=== PATIENT | female | born 1940 | race Caucasian/White ===

== ENCOUNTER 2020-07-27 09:39 | Outpatient (CLI) | payer MEDICARE, SELFPAY ==
--- NOTE | ~2020-07-27 | DEXA_ITS ---
Bone Density Report Name: Shalini Lion Age: 80 Sex: Female Ethnicity: White Date of : 1940 Indication: postmenopausal; height loss; Referring Provider: AZUCNEA PERDOMO Study: Bone densitometry was performed. Exam Date: July 27, 2020 Accession number: [id number] Bone Density: Region BMD T-score Z-score Classification AP Spine (L1-L4) 1.017 -0.3 2.4 Normal Femoral Neck (Left) 0.797 -0.5 1.9 Normal Total Hip (Left) 0.875 -0.5 1.6 Normal Total Hip Bilateral Avg 0.909 -0.3 1.8 Normal Femoral Neck (Right) 0.833 -0.1 2.2 Normal Total Hip (Right) 0.942 0.0 2.1 Normal World Health Organization criteria for BMD impression classify patients as: Normal (T-score at or above -1.0), Osteopenia (T-score between -1.0 and -2.5), or Osteoporosis (T-score at or below -2.5). 10-year Fracture Risk: FRAX not reported because: All T-scores for Spine Total, Hip Total, Femoral Neck at or above -1.0 Clinical Information Provided by Patient: Has used the following medications: Calcium Patient maximum height was 64 Menopause Age: 49 No regular weight bearing exercise Drinks caffeinated beverages Onset of menses at age 13 Number of children 2 Impression: The patient has normal bone mass. Discussion: BONE DENSITY IS ABOVE THE MINIMUM DESIRABLE LEVEL AT ALL SKELETAL SITES TESTED. This patient?s bone mineral density is above the minimum desirable level (T-score -1.0 or better) at all sites measured. The patient should follow a healthful lifestyle (good nutrition with adequate calcium and vitamin D, and appropriate weight-bearing exercise). Follow-Up: Consider repeating this study in 5 years or sooner if there is some new clinical indication. Reported by: [facility] on 07/27/2020 10:05:00 AM. Reviewed, dictated and finalized at location AObie MASTERS
== END 2020-07-27 09:40 | disposition home or self-care (01) ==
LOC: ANHIMG 09:45
PROVIDERS: PCP Internal Medicine; Visit Provider Internal Medicine
DX: Z78.0 Asymptomatic menopausal state (principal)
CPT/HCPCS: 77080

== ENCOUNTER → 2020-07-27 10:14 | Outpatient (CLI) | payer MEDICARE, SELFPAY ==
--- NOTE | ~2020-07-27 | XR_ITS ---
EXAMINATION: XR thoracic spine 3V DATE: 07/27/2020 10:53 INDICATION: Dorsalgia. TECHNIQUE: 3 views of thoracic spine were obtained. COMPARISON: None. FINDINGS: There is 23 degrees levoscoliosis of upper thoracic spine and 23 degrees dextroscoliosis of mid thoracic spine. Vertebral body heights are normal. There is moderately decreased disc height at T7-T8 and T11-T12. There is mildly decreased disc height at many other levels. There are but osteophy ron at most levels. IMPRESSION: 1. Scoliosis. 2. Moderate thoracic spondylosis. Reviewed, dictated and finalized at location B. [facility]
== END ==
PROVIDERS: PCP Internal Medicine; Visit Provider Internal Medicine
DX: M41.9 Scoliosis, unspecified (principal); M47.894 Other spondylosis, thoracic region
CPT/HCPCS: 72072

== ENCOUNTER 2021-02-09 22:18 | Inpatient (IN) | payer MEDICARE, SELFPAY ==
--- NOTE | ~2021-02-09 | CT_ITS ---
EXAMINATION: CT BRAIN W/O DATE: 02/09/2021 23:07 INDICATION: Near syncope TECHNIQUE: Computed tomography (CT) of the head was performed without intravenous contrast. The dose- length product was 605.33 mGy-cm. COMPARISON: No prior studies for comparison. FINDINGS: Normal brain parenchymal volume for age. Normal lombardi-white differentiation. No acute intrac ranial hemorrhage, infarction, mass or mass effect. There are scattered mild periventricular and subc ortical white matter changes, most likely related to small vessel ischemic disease (microangiopathy). There is intracranial atherosclerosis. No ventriculomegaly or midline shift. Midline sagittal images demonstrate a normal corpus callosum, c raniovertebral junction and sella turcica. Basilar cisterns are patent. Paranasal sinuses and mastoids are pneumatized. No depressed skull fractures. IMPRESSION: 1. No acute intracranial abnormality. Reviewed, dictated and finalized at location A.
--- NOTE | ~2021-02-09 | XR_ITS ---
XR chest 1V portable 02/09/2021 22:40 Indication: Generalized chest pain. Nausea and vomiting. Procedure: AP portable chest Comparison: 10/01/2018 Findings: Elevated right diaphragm appears chronic. Scoliosis. Heart size normal. No focal air space disease, pulmonary edema, pleural effusion or suspected pneumothorax. Calcified granuloma right upper lung zone. No acute osseous abnormality. Impression: 1: No acute cardiopulmonary disease. Reviewed, dictated and finalized at location A. Impression: 1: No acute cardiopulmonary disease.
--- NOTE | ~2021-02-09 | CT_ITS ---
EXAMINATION: CT abdomen pelvis wo con DATE: 02/09/2021 23:07 INDICATION: Near syncope. Generalized abdominal pain. TECHNIQUE: Computed tomography (CT) of the abdomen and pelvis was performed without intravenous contr ast. The dose-length product was 445.02 mGy-cm. Automated exposure control and iterative reconstructi on technique were employed. COMPARISON: CT dated 02/14/2015. FINDINGS: There is dependent atelectasis. Heart size normal. No significant pleural or pericardial ef fusion. There is gastric distention with large amount of fluid and debris in the stomach. Mild thicke juan ramon of the duodenum, suspicious for duodenitis. The liver, spleen, pancreas, adrenal glands are unremarkable. Bilateral renal cysts, largest in the l eft kidney measuring 4.6 cm. Colonic diverticulosis without evidence for diverticulitis. No significa nt vascular abnormality. No free air or free fluid. Moderate lower thoracic and lumbar spondylosis. T here is scoliosis. There is osteoarthritis of the hips. IMPRESSION: 1. Thickening of the duodenum with prominent distention of the stomach containing fluid and debris. C onsider duodenitis with partial obstruction. Reviewed, dictated and finalized at location A. IMPRESSION: 1. Thickening of the duodenum with prominent distention of the stomach containi ng fluid and debris. Consider duodenitis with partial obstruction.
[2021-02-09 22:15] VITALS: BP 81/63; PULSE 102; RESP 15; TEMP 36.3; O2SAT 100
--- NOTE | 2021-02-09 22:47 | ED.NAVMDI ---
HPI - Nausea/Vomiting/Diarrhea General Chief complaint: Nausea/Vomiting/Diarrhea Stated complaint: n/v/d and abd pain x couple days Time Seen by Provider: 02/09/21 22:25 Source: patient Mode of arrival: EMS Limitations: no limitations History of Present Illness HPI Narrative: Patient is an 80-year-old female complaining of nausea, vomiting, and diarrhea that started yesterday. Patient states that she called EMS after she almost passed out while in the bathroom. Patient's blood pressure was in the 80s over 40s when EMS arrived at her house. Patient denies headache, dizziness, speech or visual disturbance, focal weakness or numbness, chest pain, shortness of breath, fever, chills or urinary symptoms. Related Data Home Medications Medication Instructions Recorded Confirmed aspirin 81 mg tablet,delayed 81 mg PO DAILY 09/02/19 12/30/20 release melatonin 5 mg capsule mg PO DAILY cap 12/29/20 12/29/20 Allergies Allergy/AdvReac Type Severity Reaction Status Date / Time No Known Allergies Allergy Verified 02/09/21 22:30 Review of Systems Review of Systems: All systems reviewed & are unremarkable except as noted in HPI and below Constitutional: Constitutional: Denies body ache(s), Denies chills, Denies excessive sweating, Denies fatigue, Denies fever(s), Denies headache(s), Denies lethargy, Denies malaise and Denies weight loss Eyes: Eyes: Denies blurry vision, Denies change in vision and Denies loss of vision ENT: Denies dizziness, Denies ear discharge, Denies headache(s), Denies lip swelling, Denies epistaxis, Denies nasal congestion, Denies neck pain, Denies throat swelling and Denies tongue swelling Cardiovascular: Cardiovascular: Denies chest pain, Denies chest pain at rest, Denies chest pain with activity, Denies diaphoresis, Denies rapid heart rate, Denies edema, Denies irregular heart rhythm, Denies lightheadedness, Denies palpitations, Denies dyspnea and Denies dyspnea on exertion Respiratory: Respiratory: Denies chest congestion, Denies cough, Denies hemoptysis, Denies dyspnea and Denies dyspnea on exertion Gastrointestinal: Gastrointestinal: Denies abdominal pain, Denies melena, Denies hematochezia and Denies hematemesis Musculoskeletal: Musculoskeletal: Denies abnormal gait, Denies deformity, Denies joint swelling, Denies limited range of motion, Denies neck pain and Denies numbness Neurologic: Denies Abnormal speech present, Denies abnormal gait, Denies confusion, Denies dizziness, Denies headache(s), Denies focal weakness, Denies loss of vision, Denies numbness, Denies Other visual disturbances, Denies Sensory deficit (Neuro) and Denies weakness Psychiatric: Psychiatric: Denies confusion, Denies depression, Denies auditory hallucinations, Denies homicidal ideation and Denies suicidal ideation Endocrine: Endocrine: Denies cold intolerance, Denies excessive sweating, Denies fatigue, Denies heat intolerance and Denies palpitations Hematologic/Lymphatic: Hematologic/Lymphatic: Denies easy bleeding and Denies easy bruising Allergic/Immunologic: Allergic/Immunologic: Denies lip swelling, Denies throat swelling and Denies tongue swelling PMFSH Past Medical History Medical History (Updated 02/10/21 @ 01:24 by Mathew Davila MD) Screening for breast cancer Family History Family History Father Malignant neoplasm of prostate Family history of heart disease in male family member before age 55 Social History Social History (Updated 12/29/20 @ 13:56 by Clara Barney MA) Smoking packs per day: 1 Smoking cigarettes per day: 20.0 Years smoked: 3 Smoking pack-years: 3.00 Second hand tobacco smoke exposure: No Smoking end date: 09/16/1959 Alcohol intake: former Comments Past medical history: Coronary artery disease, hypertension, hyperlipidemia Family history: Noncontributory Social history: 1 pack/day smoker, no EtOH use Exam Const:
[2021-02-09 22:55] VITALS: BP 100/53; PULSE 91; RESP 14; O2SAT 100
--- NOTE | 2021-02-09 23:00 | PC.NURSE ---
Pt to CT via stretcher at this time.
[2021-02-09 23:36] VITALS: BP 116/54; PULSE 90; RESP 12; O2SAT 100
[2021-02-09] MEDS: SODIUM CHLORIDE 0.9% IV 1,000 ML 999 ML IV CONT (23:36)
[2021-02-09 23:44] LABS: Basophils Absolute Auto 0.1 K/mm3 (0.0-0.1); Basophils Percent Auto 0.3 % (0.2-1.2); Eosinophils Percent Auto 0.1 % (0-4.4); Hematocrit 26.3 % (37.0-47.0); Hemoglobin 8.4 g/dL (12.0-15.0); Immature Granulocyte Absolute 0.19 K/mm3 (0.00-0.031); Immature Granulocyte Percent A 1.3 % (0-0.5); Lymphocytes Absolute Auto 1.05 K/mm3 (0.9-3.2); Mean Corpuscular HGB Conc 31.9 g/dl (32-36); Mean Corpuscular Hemoglobin 29.7 pg (26-34); Mean Corpuscular Volume 92.9 fl (80-100); Mean Platelet Volume 10.2 fl (7.4-10.4); Monocytes Absolute Auto 0.8 K/mm3 (0.1-0.6); Monocytes Percent Auto 5.6 % (2.6-8.5); Neutrophils Absolute Auto 12.8 K/mm3 (1.3-6.7); Neutrophils Percent Auto 85.7 % (45.5-73.1); Platelet Count Result 357 k/mm3 (150-375); Red Blood Count 2.83 M/mm3 (4.2-5.4); Red Cell Distribution Width 15.9 % (11.5-14.5); White Blood Count 14.9 K/mm3 (4.5-10.0)
[2021-02-09 23:50] LABS: Lipase 41 U/L (23-300)
[2021-02-09 23:51] LABS: Alanine Aminotransferase 9 U/L (4-35); Albumin Level 3.3 g/dL (3.5-5.1); Alkaline Phosphatase 44 U/L (38-126); Anion Gap 12 mmol/L (8-16); Aspartate Amino Transferase 19 U/L (14-36); Bilirubin,Total 0.2 mg/dL (0.2-1.3); Blood Urea Nitrogen 27 mg/dL (7-17); Calcium 8.6 mg/dL (8.4-10.2); Carbon Dioxide 24 mmol/L (22-30); Chloride 104 mmol/L (98-107); Estimated CRCL calculation 45 ml/min; Estimated Glomerular Filt Rate > 60; Glucose 132 mg/dL (65-105); Potassium 3.6 mmol/L (3.4-5.0); Sodium 140 mmol/L (137-145)
[2021-02-09 23:52] LABS: Lactic Acid Reflex 1.8 mmol/L (0.7-2.1)
[2021-02-10] VITALS (32 sets, daily range): BP systolic 104–158; BP diastolic 39–135; PULSE 80–107; RESP 14–26; TEMP 35.8–36.8; O2SAT 96–100; BMI 21.6
[2021-02-10 01:00] LABS: Add Urine Microscopic? YES; Appearance Urine Cloudy (Clear); Bacteria Urine 1+ /hpf; Bilirubin Urine Negative (Negative); Blood Urine 2+ (Negative); Color Urine Yellow (Yellow); Glucose Urine UA Negative (Negative); Ketones Urine 2+ mg/dL (Negative); Leukocyte Esterase Ur 3+ LEU/UL (Negative); Mucus Urine Rare /lpf; Nitrate Urine Positive (Negative); Protein Urine 2+ mg/dL (Negative); RBC Urine 21-50 /hpf (0-2); Specific Grav Ur 1.015 (1.001-1.035); Squamous Epithelial Cell Urine Rare /hpf (Few); Urobilinogen Urine Negative mg/dL (<2.0); WBC Urine >75 /hpf
--- NOTE | 2021-02-10 01:22 | ECG_ITS ---
Measurements Intervals [place] Rate: 85 P: 26 UT: 196 QRS: 21 QRSD: 90 T: 72 QT: 369 QTc: 440 Interpretive Statements SINUS RHYTHM LOW QRS VOLTAGE IN PRECORDIAL LEADS BORDERLINE T WAVE ABNORMALITY- DIFFUSE LEADS BASELINE ARTIFACT- II, III, AVF, V3-V6 BORDERLINE ECG Electronically Signed On 02-10-2021 7:14:31 CDT by Partha Oakley D.O.
[2021-02-10] MEDS: SODIUM CHLORIDE 0.9% IV 1,000 ML 125 ML IV CONT (02:12)
--- NOTE | 2021-02-10 02:54 | ADMGEN ---
This patient, Shalini Lion, was admitted to 3 Med Surg Room 317-01 @02:50. Report received from Ariela SEAMAN in ED. Patient/family oriented to hospital policies and general routines including ID bracelet, bed and alarms, visiting hours, pain management, procedures, bathroom and other care routines, personal items, smoking policy, room service/diet, and visiting hours. Information on how to activate the Rapid Response Team has been discussed. Patient/Family are encouraged to report perceived risks to care and to ask questions if they do not understand what they are told or what they should do.
--- NOTE | 2021-02-10 03:57 | PC.NURSE ---
Patient stated she is a recent , son Gustavo will be POA upon completion of paperwork/formality. Home meds placed in main med room. Patient BIG SANDY but left hearing aids at home as well as glasses. She stated her son will be here during visiting hours to answer all questions . -GUERLINE RN
[2021-02-10] MEDS: LACTATED RINGERS 1,000 ML 90 ML IV CONT (10:40)
--- NOTE | 2021-02-10 11:21 | PM.IMHP ---
H&P: HPI History of Present Illness Date/Time: 02/10/21 11:21 Chief Complaint: Presyncope Narrative: Date of admission: 02/09/2021 Date of service: 02/10/2021 Shalini Lion is an 80-year-old female with history of hypertension, TIA, and neuropathy who presented to the emergency department on 02/09/2021 via EMS from home with complaints of almost passing out. She tells me this all started about 4 weeks ago when her . She used to hold on to him for support when walking, but with his passing, she was having more difficulty with ambulation and was feeling dizzy. She completed PT/OT for dizziness and ambulatory dysfunction and had her last appointment yesterday. On the way home, she began feeling ill and had an episode of emesis in her car. When she got home, she felt very weak and had a general malaise. She had not been eating or drinking much. She had an episode of diarrhea and had two additional episodes of vomiting. She got up to walk to the bathroom, using her rollator, and felt very lightheaded, as if she could pass out. She then went back to call her son for help and he summoned EMS. She never fell or lost consciousness. She reports having additional 2 episodes of emesis while en route. Upon arrival to the emergency department, she was found to be hypotensive with blood pressure 81/63, she was mildly tachycardic at 102., she is afebrile, additional vital signs stable, WBC was 14.9, hemoglobin 8.4, hematocrit 26.3, platelets within normal limits, BMP unremarkable with stable electrolytes, lactic acid 1.8, lipase 41, and urinalysis was grossly abnormal./pelvis showed thickening of the duodenum with prominent distention of the stomach containing fluid and debris. Upon my encounter, she reports that she is feeling better. She has not had any further episodes of nausea or emesis. She still reports diarrhea. She denied melena or hematochezia to me, however I was later informed by the nurse that she has had several episodes of melena. She denies any urinary symptoms, including dysuria, hematuria, urgency, or frequency. She is being admitted to the hospitalist service. Supervising physician for this history and physical is Dr. Bertha Shaw. Review of Systems Review of Systems: Narrative: All systems reviewed with pertinent positives and negatives as per HPI. Additionally, patient endorses weakness. She is currently denying dizziness or lightheadedness. She reports she had a normal formed bowel movement last night and denied blood in her stool. Denied hematemesis. She reports she has been having abdominal cramping recently which she attributes to indigestion. She stated that she had been feeling constipated and took an lvah-[id number] laxative a few days ago, and then subsequently developed diarrhea. She denies dysphagia. She has not been eating much. She has been following the keto diet for several months and reports intentionally losing 51 pounds. She tells me her son thinks she does not eat or drink enough. She is hard of hearing. She denies chest pain shortness breath, dyspnea on exertion, or palpitations. No fevers or chills. [facility] Past Medical History Medical History (Updated 02/10/21 @ 12:00 by Marylu Jerez PA-C) Essential (primary) hypertension Foot drop, left Macular degeneration Screening for breast cancer TIA (transient ischemic attack) Surgical History Surgical History (Updated 02/10/21 @ 11:47 by Marylu Jerez PA-C) History of abdominoplasty History of back surgery L4-L5 disc surgery History of tonsillectomy Family History Family History (Updated 02/10/21 @ 11:42 by Marylu Jerez PA-C) Father Malignant neoplasm of prostate Family history of heart disease in male family member before age 55 Mother ALS (amyotrophic lateral sclerosis) Sibling Parkinson disease Social History Social History (Updated 02/10/21 @ 11:45 by Marylu Jerez PA-C) Social
[2021-02-10 12:13] LABS: Mean Corpuscular HGB Conc 32.1 g/dl (32-36); Mean Corpuscular Volume 93.6 fl (80-100); Mean Platelet Volume 10.7 fl (7.4-10.4); Platelet Count Result 327 k/mm3 (150-375); Red Blood Count 2.03 M/mm3 (4.2-5.4); Red Cell Distribution Width 15.8 % (11.5-14.5); White Blood Count 12.2 K/mm3 (4.5-10.0)
[2021-02-10 12:32] LABS: Hemoglobin 6.1 g/dL (12.0-15.0)
[2021-02-10 13:00] LABS: IFOB Positive Control Positive; Immunochemical Fecal Occult Bl Positive (N)
[2021-02-10] MEDS: PANTOPRAZOLE SODIUM IV 40 MG VIAL IV PUSH (14:08)
--- NOTE | 2021-02-10 14:17 | WPDGICN ---
Assessment and Plan Assessment and plan (1) GI bleed: Code(s): K92.2 - Gastrointestinal hemorrhage, unspecified Status: Acute Assessment and Plan: I started her on iv protonix drip, will proceed with urgent EGD (most likely upper source), also has been taking nsaid's daily and she is on plavix (2) Acute blood loss anemia: Code(s): D62 - Acute posthemorrhagic anemia Status: Acute Assessment and Plan: will get blood transfusion and continue supportive care no more nsaid's or plavix egd carlene (3) Abnormal CT of the abdomen: Code(s): R93.5 - Abnormal findings on diagnostic imaging of other abdominal regions, including retroperitoneum Status: Acute Assessment and Plan: possible duodenal ulcer (4) Near syncope: Code(s): R55 - Syncope and collapse Status: Acute Assessment and Plan: from gib (5) Hypotension: Code(s): I95.9 - Hypotension, unspecified Status: Acute Assessment and Plan: iv fluids, protonix and transfusion to keep hb>7 (6) TIA (transient ischemic attack): Code(s): G45.9 - Transient cerebral ischemic attack, unspecified Status: Acute GI Consult Note Consult date/time: 02/10/21 14:17 Reason for consult: gib, acute blood loss anemia HPI: Shalini Lion is a 80 year old female with history of hypertension, TIA on plavix, arthritis using NSAID's twice daiyl for quite some time. She came here with new onset of nausea, vomiting and loose stool. Actually last few weeks after her passed she had difficulty with ambulation and feeling dizzy, told that probably related to inner ear problem for which completer physical therapy. Last night she got dizzy and all the sudden sick, had dark emesis and almost passed out, EMS brought her to ER. She was found to be hypotensive with blood pressure 81/63, WBC 14.9, hemoglobin 8.4 and today down to 6.1 (hb normal just few months ago), platelets normal, BUN 29 with normal creatinine, lactic acid 1.8, lipase 41. On arrival to floor started having dark stools. CT scan a/p reviewed, Thickening of the duodenum with prominent distention of the stomach containing fluid and debris. She had colonoscopies previously, last one ~ 7 years ago, does not remember having EGD. Review of Systems Constitutional: Constitutional: Reports fatigue and Reports weakness Eyes: Eyes: Denies blurry vision ENT: Denies epistaxis Cardiovascular: Cardiovascular: Denies chest pain Respiratory: Respiratory: Denies cough Gastrointestinal: Gastrointestinal: Reports hematochezia, Reports nausea and Reports vomiting Musculoskeletal: Musculoskeletal: Reports arthralgias Neurologic: Denies confusion Comments: near syncope Psychiatric: Psychiatric: Denies anxiety [facility] Past Medical History Medical History (Updated 02/10/21 @ 14:29 by Arturo Mehta MD) Abnormal CT of the abdomen Acute blood loss anemia Essential (primary) hypertension Foot drop, left Hypotension Macular degeneration Screening for breast cancer TIA (transient ischemic attack) Surgical History Surgical History History of abdominoplasty History of back surgery L4-L5 disc surgery History of tonsillectomy Family History Family History Father Malignant neoplasm of prostate Family history of heart disease in male family member before age 55 Mother ALS (amyotrophic lateral sclerosis) Sibling Parkinson disease Social History Social History Social History: Ms. Lion lives at home alone. She is mostly independent in her activities and her son lives nearby to help her as needed. She uses a walker for ambulation. She is a retired speech pathologist. She attends [employer] regularly. She designates her son, Gustavo, as her surrogate decision maker and would like
--- NOTE | 2021-02-10 14:21 | PC.NURSE ---
Patient transferred to for EGD at 1413 with son via stretcher.
--- NOTE | 2021-02-10 14:26 | WPDANESEPPF ---
Anes - Initial Pre Proc Eval Procedure: Operation Date: 02/10/21 14:10 Proposed Procedures p Esophagogastroduodenoscopy - Arturo Mehta MD Date/Time: 02/10/21 14:26 Surgeon: Marylu Jerez PA-C Pre Op Diagnosis: sepsis, uti Patient Data Age: 80 Gender: F Height: 5 ft 3 in Weight: 55.3 kg Last Vital Signs Temp 36.8 C 02/10/21 14:00 Pulse 103 H 02/10/21 14:00 Resp 16 02/10/21 14:00 BP 120/65 02/10/21 14:00 Pulse Ox 98 02/10/21 14:00 Allergies Allergy/AdvReac Type Severity Reaction Status Date / Time No Known Allergies Allergy Verified 02/10/21 03:27 Home Medications Medication Instructions Recorded Confirmed Type aspirin 81 mg tablet,delayed 81 mg PO DAILY 09/02/19 02/10/21 History release clopidogrel 75 mg tablet 75 mg PO DAILY #90 tablet 05/11/20 02/10/21 Rx trazodone 50 mg tablet 50 mg PO .COMPLEX #90 tablet 09/28/20 02/10/21 Rx melatonin 5 mg capsule 5 mg PO DAILY cap 12/29/20 02/10/21 History diclofenac sodium 75 mg See Rx Instructions .ROUTE 01/30/21 02/10/21 Rx tablet,delayed release .COMPLEX #180 tablet Arthritis Pain Reliever 1,300 mg PO ONCE 02/10/21 02/10/21 History Complete Multi 50+ 1 dose PO ONCE 02/10/21 02/10/21 History PreserVision AREDS 1 dose PO BID 02/10/21 02/10/21 History amlodipine 5 mg PO DAILY 02/10/21 02/10/21 History cyclobenzaprine 1 dose PO TID PRN 02/10/21 02/10/21 History pantoprazole 1 dose PO PRN PRN 02/10/21 02/10/21 History Laboratory Tests 02/09/21 02/09/21 02/09/21 23:30 23:31 23:31 WBC 14.9 K/mm3 H K/mm3 (4.5-10.0) RBC 2.83 M/mm3 L M/mm3 (4.2-5.4) Hgb 8.4 g/dL L g/dL (12.0-15.0) Hct 26.3 % L % (37.0-47.0) MCV 92.9 fl fl (80-100) MCH 29.7 pg pg (26-34) MCHC 31.9 g/dl L g/dl (32-36) RDW 15.9 % H % (11.5-14.5) Plt Count 357 k/mm3 k/mm3 (150-375) MPV 10.2 fl fl (7.4-10.4) Immature Gran % (Auto) 1.3 % H % (0-0.5) Neut % (Auto) 85.7 % H % (45.5-73.1) Lymph % (Auto) 7.0 % L % (18.3-44.2) [place] % (Auto) 5.6 % % (2.6-8.5) Eos % (Auto) 0.1 % % (0-4.4) Baso % (Auto) 0.3 % % (0.2-1.2) Lymph # (Auto) 1.05 K/mm3 K/mm3 (0.9-3.2) [place] # (Auto) 0.8 K/mm3 H K/mm3 (0.1-0.6) Eos # (Auto) 0.0 K/mm3 K/mm3 (0-0.3) Baso # (Auto) 0.1 K/mm3 K/mm3 (0.0-0.1) Abs Immat Gran (auto) 0.19 K/mm3 H K/mm3 (0.00-0.031) Absolute Neuts (auto) 12.8 K/mm3 H K/mm3 (1.3-6.7) Absolute Nucleated RBC 0.0 K/mm3 K/mm3 (0.0-0.012) Nucleated RBC % 0.0 % % (0.0-0.2) Sodium 140 mmol/L mmol/L (137-145) Potassium 3.6 mmol/L mmol/L (3.4-5.0) Chloride 104 mmol/L mmol/L (98-107) Carbon Dioxide 24 mmol/L mmol/L (22-30) Anion Gap 12 mmol/L mmol/L (8-16) BUN 27 mg/dL H mg/dL (7-17) Creatinine 0.70 mg/dL mg/dL (0.7-1.0) Estim Creat Clear Calc 45 ml/min ml/min Estimated GFR > 60 (59 - ) Glucose 132 mg/dL H mg/dL (65-105) Lactic Acid 1.8 mmol/L mmol/L (0.7-2.1) Calcium 8.6 mg/dL mg/dL (8.4-10.2) Total Bilirubin 0.2 mg/dL mg/dL (0.2-1.3) AST 19 U/L U/L (14-36) ALT 9 U/L U/L (4-35) Alkaline Phosphatase 44 U/L U/L (38-126) Total Protein 6.0 g/dL L g/dL (6.3-8.2) Albumin 3.3 g/dL L g/dL (3.5-5.1) Lipase Urine Color Urine Appearance Urine pH Ur Specific [place] Urine Protein Urine Glucose (UA) Urine Ketones Ur Blood (Man) Urine Nitrate Urine Bilirubin Urine Urobilinogen Leukocyte Esterase Rfl Urine RBC Urine WBC
[2021-02-10] MEDS: LACTATED RINGERS 1,000 ML 150 ML IV CONT (14:27)
[2021-02-10] MEDS: MORPHINE SULFATE (*CRX) 2 MG/ML INJ 1 MG IV PUSH (15:45)
[2021-02-10] MEDS: SODIUM CHLORIDE 0.9% IV 250 ML 30 ML IV CONT (16:53)
[2021-02-10 17:45] LABS: Hematocrit 18.3 % (37.0-47.0); Hemoglobin 5.8 g/dL (12.0-15.0)
--- NOTE | 2021-02-10 18:49 | PC.NURSE ---
This patient, Shalini Lion, was received from [ [phone] ] on 02/10/21 at 1840. Patient/family oriented to unit policies and routines
[2021-02-10] MEDS: TUBING, BLOOD PLUM PUMP TUBING 1 EACH XX (23:47)
[2021-02-11] VITALS (12 sets, daily range): BP systolic 111–148; BP diastolic 50–65; PULSE 63–97; RESP 14–20; TEMP 36.2–37.2; O2SAT 98–100
[2021-02-11 01:51] LABS: Hematocrit 26.4 % (37.0-47.0); Hemoglobin 8.8 g/dL (12.0-15.0)
[2021-02-11 05:32] LABS: Anion Gap 4 mmol/L (8-16); Blood Urea Nitrogen 22 mg/dL (7-17); Calcium 8.2 mg/dL (8.4-10.2); Carbon Dioxide 25 mmol/L (22-30); Chloride 111 mmol/L (98-107); Estimated CRCL calculation 61 ml/min; Estimated Glomerular Filt Rate > 60; Glucose 89 mg/dL (65-105); Potassium 3.1 mmol/L (3.4-5.0); Sodium 140 mmol/L (137-145)
[2021-02-11 05:33] LABS: Hematocrit 25.8 % (37.0-47.0); Hemoglobin 8.7 g/dL (12.0-15.0); Mean Corpuscular HGB Conc 33.7 g/dl (32-36); Mean Corpuscular Hemoglobin 28.9 pg (26-34); Mean Corpuscular Volume 85.7 fl (80-100); Mean Platelet Volume 10.8 fl (7.4-10.4); Platelet Count Result 242 k/mm3 (150-375); Red Blood Count 3.01 M/mm3 (4.2-5.4); White Blood Count 10.6 K/mm3 (4.5-10.0)
--- NOTE | 2021-02-11 10:07 | PM.IMPN ---
Progress Note: A&P Assessment and Plan (1) Acute anemia: Code(s): D64.9 - Anemia, unspecified Status: Acute Assessment and Plan: Acute blood loss anemia secondary to GI bleed secondary to duodenal and gastric ulcer treated with PPI drip status post endoscopy GI following Monitor H&H q6h Status post blood transfusion keep hemoglobin above 7 Monitor vital signs closely. She is hemodynamically stable at this time. (2) GI bleed: Code(s): K92.2 - Gastrointestinal hemorrhage, unspecified Status: Acute Assessment and Plan: Secondary to duodenal gastric also status post endoscopy GI recommendation appreciated Appreciate GI evaluation Endoscopy results as above IV protonix (3) Sepsis: Qualifiers: Sepsis acute organ dysfunction status: unspecified Sepsis type: sepsis due to unspecified organism Qualified Code(s): A41.9 - Sepsis, unspecified organism Code(s): A41.9 - Sepsis, unspecified organism Status: Acute Assessment and Plan: Present on admission, supported hypotension, tachycardia, and leukocytosis. qSOFA score of 1 at admission. Source of infection felt to be UTI. Blood pressures and heart rate have stabilized. Continue with treatment of UTI. Blood cultures Gentle IV fluids Monitor vital signs, electrolytes, and urine output (4) Urinary tract infection: Qualifiers: Hematuria presence: without hematuria Urinary tract infection type: site unspecified Qualified Code(s): N39.0 - Urinary tract infection, site not specified Code(s): N39.0 - Urinary tract infection, site not specified Status: Acute Assessment and Plan: Urinalysis is abnormal at presentation Continue IV Rocephin Follow-up final culture results (5) Near syncope: Code(s): R55 - Syncope and collapse Status: Acute Assessment and Plan: Likely secondary to volume depletion given GI bleed, vomiting, diarrhea. Head CT negative. Continue IV fluids Monitor blood pressure trends. Check orthostatics Fall precautions Subjective Date/time seen: 02/11/21 10:07 Interval history: Patient seen and examined Patient was admitted to the hospital with GI bleed GI was consulted patient has upper endoscopy shows gastric and duodenal ulcer and also hiatus hernia patient was treated with Protonix drip today patient still complains of bleeding per rectum Patient feels weak Patient denies fever headache chest pain shortness of breath I am seeing the patient for GI bleed Exam Narrative: Exam Narrative: Alert Chest no wheeze crackles Abdomen nontender nondistended CVS S1 + S2 Negative Lower extremity edema Objective Data Vital Signs Vital Signs: Vital Signs - 24 hr 02/10/21 12:00 02/10/21 14:00 02/10/21 14:25 Temperature 98.3 F 97.9 F Pulse Rate 97 103 H 107 H Respiratory Rate 16 20 Blood Pressure 120/65 120/69 Pulse Oximetry 98 100 02/10/21 15:00 02/10/21 15:10 02/10/21 15:20 Temperature Pulse Rate 86 99 99 Respiratory Rate 20 22 H 26 H Blood Pressure 123/55 L 130/105 H 158/135 H Pulse Oximetry 97 97 96 02/10/21 15:30 02/10/21 15:40 02/10/21 15:50 Temperature Pulse Rate 95 96 94 Respiratory Rate 20 22 H 18 Blood Pressure 125/57 L 136/39 L 129/60 Pulse Oximetry 97 96 96 02/10/21 16:00 02/10/21 16:53 02/10/21 17:15 Temperature 97.9 F 97.2 F L Pulse Rate 93 97 96 Respiratory Rate 16 14 Blood Pressure 116/51 L 104/49 L Pulse Oximetry 100 100 02/10/21 18:05 02/10/21 18:15 02/10/21 18:40 Temperature 97.5 F L 96.4 F L Pulse Rate 86 86 Respiratory Rate 14 18 Blood Pressure 107/51 L 121/51 L Pulse Oximetry 100 100 100 02/10/21 18:50 02/10/21 19:15 02/10/21 20:00 Temperature 97.4 F L 97.4 F L Pulse Rate 85 85 88 Respiratory Rate 14 14 Blood Pressure 127/53 L 127/53 L Pulse Oximetry 100 100 02/10/21 20:15 02/10/21 21:39 02/10/21 21:54 Temperature 97
[2021-02-11 10:34] LABS: Hematocrit 26.3 % (37.0-47.0); Hemoglobin 8.9 g/dL (12.0-15.0)
--- NOTE | 2021-02-11 11:45 | WPDGIPROGNO ---
Progress Note: A&P Assessment and Plan (1) Duodenal ulcer: Code(s): K26.9 - Duodenal ulcer, unspecified as acute or chronic, without hemorrhage or perforation Status: Acute Assessment and Plan: had large duodenal ulcer with active oozing, treated endoscopically hb mid 8 after blood transfusion and stable expect to have dark stools for 1-2 more days but of course if drop in hb again or signs of more bleeding, then may need another egd liquid diet and advance as tolerated continue with iv protonix drip for another day, probably tomorrow can switch to twice daily she should not be on any more nsaid's at home (discussed with her son at bedside today), she has back pain and may need tylenol or any other pain meds as needed family also would like to talk to a population health manager (patient lately has been on keto diet in order to lose weight and would like to have input from a population health manager) (2) Acute blood loss anemia: Code(s): D62 - Acute posthemorrhagic anemia Status: Acute Assessment and Plan: required blood transfusion, continue to monitor for more signs of bleeding (3) Melena: Code(s): K92.1 - Melena Status: Acute Assessment and Plan: monitor she was on nsaid's at home (4) Abnormal CT of the abdomen: Code(s): R93.5 - Abnormal findings on diagnostic imaging of other abdominal regions, including retroperitoneum Status: Acute Assessment and Plan: from large duodenal ulcer (5) Near syncope: Code(s): R55 - Syncope and collapse Status: Acute (6) Urinary tract infection: Qualifiers: Hematuria presence: without hematuria Urinary tract infection type: site unspecified Qualified Code(s): N39.0 - Urinary tract infection, site not specified Code(s): N39.0 - Urinary tract infection, site not specified Status: Acute Assessment and Plan: on abx Subjective Date/time seen: 02/11/21 11:45 Interval history: she is feeling better after blood transfusion and iv protonix. EGD yesterday with large bleeding duodenal ulcer treated endoscopically with epi and gold probe. She had dark stool this morning but no pain. Review of Systems Review of Systems: All systems reviewed & are unremarkable except as noted in HPI and below Exam Const: General: comfortable and no acute distress HENMT: General nose exam: Normal nares present Eyes: General: appearance normal, both eyes and all related structures Neck: Neck: supple Resp: Auscultation: clear to auscultation bilaterally Cardio: Rate: regular rate GI: Inspection: non-distended GI Palp: Yes Soft to palpation, No Tenderness to palpation present (GI) and No Guarding due to palpation present (GI) Auscultation: normal bowel sounds Skin: General skin exam: no erythema Neuro: Speech: normal speech Motor exam (neuro): Normal motor muscle tone present throughout Extrem: General: normal to inspection Psych: Mental Status: mental status grossly normal Objective Data Vital Signs Vital Signs: Vital Signs - 24 hr 02/10/21 12:00 02/10/21 14:00 02/10/21 14:25 Temperature 98.3 F 97.9 F Pulse Rate 97 103 H 107 H Respiratory Rate 16 20 Blood Pressure 120/65 120/69 Pulse Oximetry 98 100 02/10/21 15:00 02/10/21 15:10 02/10/21 15:20 Temperature Pulse Rate 86 99 99 Respiratory Rate 20 22 H 26 H Blood Pressure 123/55 L 130/105 H 158/135 H Pulse Oximetry 97 97 96 02/10/21 15:30 02/10/21 15:40 02/10/21 15:50 Temperature Pulse Rate 95 96 94 Respiratory Rate 20 22 H 18 Blood Pressure 125/57 L 136/39 L 129/60 Pulse Oximetry 97 96 96 02/10/21 16:00 02/10/21 16:53 02/10/21 17:15 Temperature 97.9 F 97.2 F L Pulse Rate 93 97 96 Respiratory Rate 16 14 Blood Pressure 116/51 L 104/49 L Pulse Oximetry 100 100 02/10/21 18:05 02/10/21 18:15 02/10/21 18:40 Temperature 97.5 F L 96.4 F L Pulse Rate 86 86 Respiratory Rate 14 18 Blood Pressure 107/51 L 121/51 L P
[2021-02-11] MEDS: MULTIVITAMINS /C LUTEIN (CENTRUM SILVER) TABLET *BKC 1 TAB PO (15:25)
--- NOTE | 2021-02-11 15:38 | PC.NURSE ---
This patient, Shalini Lion, was transferred to [facility] on 02/11/21 at 1535. Personal belongings sent with patient. Report given to Alma SEAMAN. Appropriate documentation sent with patient.
[2021-02-11 17:53] LABS: Hematocrit 28.2 % (37.0-47.0); Hemoglobin 9.4 g/dL (12.0-15.0)
[2021-02-11] MEDS: OPTI-GEN TAB 1 TABLET PO (19:40)
[2021-02-11] MEDS: LATANOPROST 0.005% OP SOLN 2.5 ML BTL 1 DROP EACH EYE (21:29)
[2021-02-11] MEDS: MELATONIN 5 MG TABLET PO (21:29)
[2021-02-11 23:45] LABS: Hematocrit 28.2 % (37.0-47.0); Hemoglobin 9.4 g/dL (12.0-15.0)
[2021-02-12] MEDS: CYCLOBENZAPRINE HCL 10 MG TABLET PO (00:22)
[2021-02-12] MEDS: traZODone HCL 50 MG TABLET 100 MG PO ×2 (00:45→21:17)
[2021-02-12 06:00] VITALS: BP 122/54; PULSE 85; RESP 18; TEMP 36.6; O2SAT 97
--- NOTE | 2021-02-12 08:15 | PM.IMPN ---
Progress Note: A&P Assessment and Plan (1) Acute anemia: Code(s): D64.9 - Anemia, unspecified Status: Acute Assessment and Plan: Acute blood loss anemia secondary to GI bleed secondary to duodenal and gastric ulcer treated with PPI drip status post endoscopy GI following improved Monitor H&H q6h Duodenal and gastric ulcer PPI avoid NSAID Status post blood transfusion keep hemoglobin above 7 Monitor vital signs closely. She is hemodynamically stable at this time. (2) GI bleed: Code(s): K92.2 - Gastrointestinal hemorrhage, unspecified Status: Acute Assessment and Plan: Secondary to duodenal gastric also status post endoscopy GI recommendation appreciated Appreciate GI evaluation Endoscopy results as above IV protonix plan to switch to IV Protonix twice a day today (3) Sepsis: Qualifiers: Sepsis acute organ dysfunction status: unspecified Sepsis type: sepsis due to unspecified organism Qualified Code(s): A41.9 - Sepsis, unspecified organism Code(s): A41.9 - Sepsis, unspecified organism Status: Acute Assessment and Plan: Present on admission, supported hypotension, tachycardia, and leukocytosis. qSOFA score of 1 at admission. Source of infection felt to be UTI. Blood pressures and heart rate have stabilized. Continue with treatment of UTI. Switched IV Rocephin to cefdinir urine culture shows E coli Blood cultures Encourage hydration Monitor vital signs, electrolytes, and urine output (4) Urinary tract infection: Qualifiers: Hematuria presence: without hematuria Urinary tract infection type: site unspecified Qualified Code(s): N39.0 - Urinary tract infection, site not specified Code(s): N39.0 - Urinary tract infection, site not specified Status: Acute Assessment and Plan: Urinalysis is abnormal at presentation Continue cefdinir for a total of 5 more days started on 02/12/2021 after switching from IV Rocephin Follow-up final culture results (5) Near syncope: Code(s): R55 - Syncope and collapse Status: Acute Assessment and Plan: Likely secondary to volume depletion given GI bleed, vomiting, diarrhea. Head CT negative. Treated with IV fluid continue hydration Monitor blood pressure trends.k orthostatics Fall precautions Subjective Date/time seen: 02/12/21 08:15 Interval history: Patient seen and examined Patient was admitted to the hospital with GI bleed GI was consulted patient has upper endoscopy shows gastric and duodenal ulcer and also hiatus hernia patient was treated with Protonix drip plan for switching Protonix drip to b.i.d. today DC IV Rocephin Started cefdinir urine culture shows E coli Anticipate discharge in a.m. Pending final recommendation from GI regarding when to resume antiplatelet Patient feels weak Patient denies fever headache chest pain shortness of breath I am seeing the patient for GI bleed Exam Narrative: Exam Narrative: Alert Chest no wheeze crackles Abdomen nontender nondistended CVS S1 + S2 Negative Lower extremity edema Objective Data Vital Signs Vital Signs: Vital Signs - 24 hr 02/11/21 09:04 02/11/21 10:00 02/11/21 14:00 Temperature 97.9 F Pulse Rate 79 86 Respiratory Rate 20 Blood Pressure 148/58 H Pulse Oximetry 98 100 02/11/21 22:00 02/12/21 06:00 Temperature 98.9 F 97.8 F Pulse Rate 97 85 Respiratory Rate 16 18 Blood Pressure 146/65 H 122/54 L Pulse Oximetry 98 97 Intake/Output Intake/Output: Intake & Output 02/09/21 02/10/21 02/11/21 02/12/21 23:59 23:59 23:59 23:59 Intake Total 1405 2064 400 Output Total 600 1503 1900 Balance 805 561 -1500 Meds/Results Medications: Active Medications Generic Name Dose Route Start Last Admin Trade Name Freq PRN Reason Stop Dose Admin Cefdinir 300 mg 02/12/21 09:00 Cefdinir 300 Mg Capsule PO 02/17/21 09:01 Q12HR PRUDENCE Cycl
[2021-02-12 08:25] VITALS: O2SAT 97
[2021-02-12] MEDS: OPTI-GEN TAB 1 TABLET PO ×2 (08:25→17:29)
[2021-02-12] MEDS: MULTIVITAMINS /C LUTEIN (CENTRUM SILVER) TABLET *BKC 1 TAB PO (08:25)
[2021-02-12 08:28] LABS: Basophils Absolute Auto 0.1 K/mm3 (0.0-0.1); Basophils Percent Auto 0.6 % (0.2-1.2); Eosinophils Absolute Auto 0.4 K/mm3 (0-0.3); Eosinophils Percent Auto 4.1 % (0-4.4); Hemoglobin 9.9 g/dL (12.0-15.0); Immature Granulocyte Absolute 0.06 K/mm3 (0.00-0.031); Immature Granulocyte Percent A 0.7 % (0-0.5); Lymphocytes Absolute Auto 2.11 K/mm3 (0.9-3.2); Lymphocytes Percent Auto 23.5 % (18.3-44.2); Mean Corpuscular Hemoglobin 29.2 pg (26-34); Mean Corpuscular Volume 88.5 fl (80-100); Mean Platelet Volume 10.2 fl (7.4-10.4); Monocytes Percent Auto 10.8 % (2.6-8.5); Neutrophils Absolute Auto 5.4 K/mm3 (1.3-6.7); Neutrophils Percent Auto 60.3 % (45.5-73.1); Platelet Count Result 257 k/mm3 (150-375); Red Blood Count 3.39 M/mm3 (4.2-5.4); Red Cell Distribution Width 15.7 % (11.5-14.5)
[2021-02-12 08:46] LABS: Alanine Aminotransferase 11 U/L (4-35); Albumin Level 3.1 g/dL (3.5-5.1); Alkaline Phosphatase 38 U/L (38-126); Anion Gap 5 mmol/L (8-16); Aspartate Amino Transferase 23 U/L (14-36); Bilirubin,Total 0.1 mg/dL (0.2-1.3); Blood Urea Nitrogen 5 mg/dL (7-17); Carbon Dioxide 30 mmol/L (22-30); Chloride 105 mmol/L (98-107); Estimated CRCL calculation 61 ml/min; Estimated Glomerular Filt Rate > 60; Glucose 96 mg/dL (65-105); Potassium 2.9 mmol/L (3.4-5.0); Sodium 140 mmol/L (137-145)
[2021-02-12] MEDS: ACETAMINOPHEN 500 MG TABLET 1000 MG PO (09:12)
[2021-02-12] MEDS: CEFDINIR 300 MG CAPSULE PO ×2 (09:12→21:15)
[2021-02-12 10:13] LABS: Hematocrit 28.5 % (37.0-47.0); Hemoglobin 9.5 g/dL (12.0-15.0)
--- NOTE | 2021-02-12 11:52 | WPDGIPROGNO ---
Progress Note: A&P Assessment and Plan (1) Duodenal ulcer: Code(s): K26.9 - Duodenal ulcer, unspecified as acute or chronic, without hemorrhage or perforation Status: Acute Assessment and Plan: had large duodenal ulcer with active oozing, treated endoscopically 02/10 hb low but stable after blood transfusion ok to switch to protonix 40mg twice daily after completing bag of protonix drip today advancing diet she should not be on any more nsaid's at home- she can have tylenol or others as needed if pain EGD in 3 months to assess healing of ulcers (2) Acute blood loss anemia: Code(s): D62 - Acute posthemorrhagic anemia Status: Acute Assessment and Plan: required blood transfusion but hb stable since transfusion (3) Melena: Code(s): K92.1 - Melena Status: Acute Assessment and Plan: no more stools (4) Abnormal CT of the abdomen: Code(s): R93.5 - Abnormal findings on diagnostic imaging of other abdominal regions, including retroperitoneum Status: Acute Assessment and Plan: from large duodenal ulcer (5) Near syncope: Code(s): R55 - Syncope and collapse Status: Acute (6) Urinary tract infection: Qualifiers: Hematuria presence: without hematuria Urinary tract infection type: site unspecified Qualified Code(s): N39.0 - Urinary tract infection, site not specified Code(s): N39.0 - Urinary tract infection, site not specified Status: Acute Assessment and Plan: on abx by primary team Subjective Date/time seen: 02/12/21 11:52 Interval history: c/o back pain but overall better, no more GIB, tolerating diet (will try soft later today) Review of Systems Review of Systems: All systems reviewed & are unremarkable except as noted in HPI and below Exam Const: General: comfortable and no acute distress HENMT: General nose exam: Normal nares present Eyes: General: appearance normal, both eyes and all related structures Neck: Neck: supple Resp: Auscultation: clear to auscultation bilaterally Cardio: Rate: regular rate GI: Inspection: non-distended GI Palp: No Tenderness to palpation present (GI) Auscultation: normal bowel sounds Skin: General skin exam: no rashes or lesions noted Neuro: Speech: normal speech Motor exam (neuro): Normal motor muscle tone present throughout Extrem: General: normal to inspection Psych: Mental Status: mental status grossly normal Objective Data Vital Signs Vital Signs: Vital Signs - 24 hr 02/11/21 14:00 02/11/21 22:00 02/12/21 06:00 Temperature 97.9 F 98.9 F 97.8 F Pulse Rate 86 97 85 Respiratory Rate 20 16 18 Blood Pressure 148/58 H 146/65 H 122/54 L Pulse Oximetry 100 98 97 Intake/Output Intake/Output: Intake & Output 02/09/21 02/10/21 02/11/21 02/12/21 23:59 23:59 23:59 23:59 Intake Total 1405 2064 1260 Output Total 600 1503 1900 Balance 805 561 -640 Meds/Results Medications: Active Medications Generic Name Dose Route Start Last Admin Trade Name Freq PRN Reason Stop Dose Admin Acetaminophen 1,000 mg 02/12/21 08:35 02/12/21 09:12 Acetaminophen 500 Mg Tablet PO 1,000 mg Q6H PRN Administration Mild Pain (1-3) or Fever Cefdinir 300 mg 02/12/21 09:00 02/12/21 09:12 Cefdinir 300 Mg Capsule PO 02/17/21 09:01 300 mg Q12HR PRUDENCE Administration Cyclobenzaprine HCl 10 mg 02/11/21 13:10 02/12/21 00:22 Cyclobenzaprine Hcl 10 Mg Tablet PO 10 mg TID PRN Administration Spasms Pantoprazole Sodium 80 mg/ 500 mls @ 50 mls/hr 02/10/21 13:15 02/12/21 08:19 Dextrose IV CONT 50 mls/hr .Q10H PRUDENCE Administration Latanoprost 1 drop 02/11/21 21:00 02/11/21 21:29 Latanoprost 0.005% Op Soln 2.5 Ml Btl EACH EYE 03/13/21 21:01 1 drop HS PRUDENCE Administration Melatonin 5 mg 02/11/21 21:00 02/11/21 21:29 Melatonin 5 Mg Tablet PO 5 mg HS PRUDENCE Administration Multivitamins/Minerals 1 tab 01/15
[2021-02-12 14:00] VITALS: BP 107/59; PULSE 84; RESP 16; TEMP 37.1; O2SAT 100
[2021-02-12] MEDS: PANTOPRAZOLE 40 MG TABLET PO (21:15)
[2021-02-12] MEDS: LATANOPROST 0.005% OP SOLN 2.5 ML BTL 1 DROP EACH EYE (21:15)
[2021-02-12 21:50] VITALS: O2SAT 98
[2021-02-12 22:00] VITALS: BP 122/51; PULSE 77; RESP 20; TEMP 36.7; O2SAT 98
[2021-02-13 06:00] VITALS: BP 116/48; PULSE 78; RESP 18; TEMP 36.4; O2SAT 96
--- NOTE | 2021-02-13 08:18 | PM.IMPN ---
Progress Note: A&P Assessment and Plan (1) Acute anemia: Code(s): D64.9 - Anemia, unspecified Status: Acute Assessment and Plan: Acute blood loss anemia secondary to GI bleed secondary to duodenal and gastric ulcer treated with PPI drip status post endoscopy GI following improved Monitor H&H q6h Duodenal and gastric ulcer PPI avoid NSAID Status post blood transfusion keep hemoglobin above 7 Monitor vital signs closely. She is hemodynamically stable at this time. (2) GI bleed: Code(s): K92.2 - Gastrointestinal hemorrhage, unspecified Status: Acute Assessment and Plan: Secondary to duodenal gastric also status post endoscopy GI recommendation appreciated Appreciate GI evaluation Endoscopy results as above IV protonix drip switched to Protonix twice a day (3) Sepsis: Qualifiers: Sepsis acute organ dysfunction status: unspecified Sepsis type: sepsis due to unspecified organism Qualified Code(s): A41.9 - Sepsis, unspecified organism Code(s): A41.9 - Sepsis, unspecified organism Status: Acute Assessment and Plan: Present on admission, supported hypotension, tachycardia, and leukocytosis. qSOFA score of 1 at admission. Source of infection felt to be UTI. Blood pressures and heart rate have stabilized. Continue with treatment of UTI. Switched IV Rocephin to cefdinir urine culture shows E coli Blood cultures Encourage hydration Monitor vital signs, electrolytes, and urine output (4) Urinary tract infection: Qualifiers: Hematuria presence: without hematuria Urinary tract infection type: site unspecified Qualified Code(s): N39.0 - Urinary tract infection, site not specified Code(s): N39.0 - Urinary tract infection, site not specified Status: Acute Assessment and Plan: Urinalysis is abnormal at presentation Continue cefdinir for a total of 5 more days started on 02/12/2021 after switching from IV Rocephin Follow-up final culture results (5) Near syncope: Code(s): R55 - Syncope and collapse Status: Acute Assessment and Plan: Likely secondary to volume depletion given GI bleed, vomiting, diarrhea. Head CT negative. patient still complained of dizziness check orthostatics restart IV fluids Monitor blood pressure trends Fall precautions (6) Hypokalemia: Code(s): E87.6 - Hypokalemia Status: Acute Assessment and Plan: replace potassium monitor CMP check magnesium level Subjective Date/time seen: 02/13/21 08:18 Interval history: Patient seen and examined Patient was admitted to the hospital with GI bleed GI was consulted patient has upper endoscopy shows gastric and duodenal ulcer and also hiatus hernia patient was treated with Protonix drip plan for switching Protonix drip to b.i.d. today DC IV Rocephin Started cefdinir urine culture shows E coli Patient is complaining of dizziness patient has hypokalemia patient lives alone Patient feels weak Patient denies fever headache chest pain shortness of breath I am seeing the patient for GI bleed Exam Narrative: Exam Narrative: Alert Chest no wheeze crackles Abdomen nontender nondistended CVS S1 + S2 Negative Lower extremity edema Objective Data Vital Signs Vital Signs: Vital Signs - 24 hr 02/12/21 08:25 02/12/21 14:00 02/12/21 21:50 Temperature 98.7 F Pulse Rate 84 Respiratory Rate 16 Blood Pressure 107/59 L Pulse Oximetry 97 100 98 02/12/21 22:00 02/13/21 06:00 Temperature 98.0 F 97.6 F Pulse Rate 77 78 Respiratory Rate 20 18 Blood Pressure 122/51 L 116/48 L Pulse Oximetry 98 96 Intake/Output Intake/Output: Intake & Output 02/10/21 02/11/21 02/12/21 02/13/21 23:59 23:59 23:59 23:59 Intake Total 1405 2064 2500 400 Output Total 600 1503 3050 600 Balance 805 561 -896 -200 Meds/Results Medications: Active Medications Generic Name Dose Route
[2021-02-13 08:26] LABS: Basophils Absolute Auto 0.1 K/mm3 (0.0-0.1); Basophils Percent Auto 0.7 % (0.2-1.2); Eosinophils Absolute Auto 0.4 K/mm3 (0-0.3); Eosinophils Percent Auto 4.8 % (0-4.4); Hematocrit 28.9 % (37.0-47.0); Hemoglobin 9.3 g/dL (12.0-15.0); Immature Granulocyte Absolute 0.04 K/mm3 (0.00-0.031); Immature Granulocyte Percent A 0.5 % (0-0.5); Lymphocytes Percent Auto 28.6 % (18.3-44.2); Mean Corpuscular HGB Conc 32.2 g/dl (32-36); Mean Corpuscular Hemoglobin 29.4 pg (26-34); Mean Corpuscular Volume 91.5 fl (80-100); Mean Platelet Volume 11.3 fl (7.4-10.4); Monocytes Absolute Auto 0.7 K/mm3 (0.1-0.6); Monocytes Percent Auto 9.5 % (2.6-8.5); Neutrophils Absolute Auto 4.3 K/mm3 (1.3-6.7); Neutrophils Percent Auto 55.9 % (45.5-73.1); Platelet Count Result 147 k/mm3 (150-375); Red Blood Count 3.16 M/mm3 (4.2-5.4); Red Cell Distribution Width 16.2 % (11.5-14.5); White Blood Count 7.7 K/mm3 (4.5-10.0)
[2021-02-13 08:42] LABS: Alanine Aminotransferase 30 U/L (4-35); Albumin Level 2.9 g/dL (3.5-5.1); Alkaline Phosphatase 38 U/L (38-126); Anion Gap 5 mmol/L (8-16); Aspartate Amino Transferase 42 U/L (14-36); Bilirubin,Total 0.2 mg/dL (0.2-1.3); Blood Urea Nitrogen 11 mg/dL (7-17); Calcium 9.3 mg/dL (8.4-10.2); Carbon Dioxide 27 mmol/L (22-30); Chloride 106 mmol/L (98-107); Estimated CRCL calculation 52 ml/min; Estimated Glomerular Filt Rate > 60; Glucose 92 mg/dL (65-105); Potassium 3.5 mmol/L (3.4-5.0); Sodium 138 mmol/L (137-145)
[2021-02-13 08:43] LABS: Magnesium 1.8 mg/dL (1.6-2.3)
[2021-02-13] MEDS: POTASSIUM CHLORIDE 20 MEQ TABLET.ER 40 MEQ PO (09:00)
[2021-02-13] MEDS: CEFDINIR 300 MG CAPSULE PO ×2 (09:01→21:49)
[2021-02-13] MEDS: OPTI-GEN TAB 1 TABLET PO ×2 (09:01→18:27)
[2021-02-13] MEDS: MULTIVITAMINS /C LUTEIN (CENTRUM SILVER) TABLET *BKC 1 TAB PO (09:01)
[2021-02-13] MEDS: PANTOPRAZOLE 40 MG TABLET PO ×2 (09:01→21:49)
[2021-02-13] MEDS: ACETAMINOPHEN 500 MG TABLET 1000 MG PO (09:05)
[2021-02-13 09:30] VITALS: BP 110/51; PULSE 72
[2021-02-13 09:32] VITALS: BP 111/64; PULSE 88
[2021-02-13 09:34] VITALS: BP 115/59; PULSE 90
[2021-02-13 10:31] LABS: Hematocrit 28.6 % (37.0-47.0); Hemoglobin 9.4 g/dL (12.0-15.0)
--- NOTE | 2021-02-13 10:51 | WPDGIPROGNO ---
Progress Note: A&P Assessment and Plan (1) Duodenal ulcer: Code(s): K26.9 - Duodenal ulcer, unspecified as acute or chronic, without hemorrhage or perforation Status: Acute Assessment and Plan: had large duodenal ulcer with active oozing, treated endoscopically 02/10 hb low but stable after blood transfusion tolerating diet she can go home with protonix 40mg twice daily and do not use any more nsaid's will set up EGD in 3 months to assess healing of ulcers (2) Acute blood loss anemia: Code(s): D62 - Acute posthemorrhagic anemia Status: Acute Assessment and Plan: required blood transfusion but hb stable since transfusion (3) Melena: Code(s): K92.1 - Melena Status: Acute Assessment and Plan: resolved (4) Abnormal CT of the abdomen: Code(s): R93.5 - Abnormal findings on diagnostic imaging of other abdominal regions, including retroperitoneum Status: Acute Assessment and Plan: from large duodenal ulcer (5) Near syncope: Code(s): R55 - Syncope and collapse Status: Acute Assessment and Plan: on physical therapy as needed (6) Urinary tract infection: Qualifiers: Hematuria presence: without hematuria Urinary tract infection type: site unspecified Qualified Code(s): N39.0 - Urinary tract infection, site not specified Code(s): N39.0 - Urinary tract infection, site not specified Status: Acute Assessment and Plan: on abx by primary team Subjective Date/time seen: 02/13/21 10:51 Interval history: no more gib, good appetite, good spirits Review of Systems Review of Systems: All systems reviewed & are unremarkable except as noted in HPI and below Exam Const: General: comfortable and no acute distress HENMT: General nose exam: Normal nares present Eyes: General: appearance normal, both eyes and all related structures Neck: Neck: supple Resp: Auscultation: clear to auscultation bilaterally Cardio: Rate: regular rate GI: Inspection: non-distended GI Palp: No Tenderness to palpation present (GI) Auscultation: normal bowel sounds Skin: General skin exam: no rashes or lesions noted Neuro: Speech: normal speech Motor exam (neuro): Normal motor muscle tone present throughout Extrem: General: normal to inspection Psych: Mental Status: mental status grossly normal Objective Data Vital Signs Vital Signs: Vital Signs - 24 hr 02/12/21 14:00 02/12/21 21:50 02/12/21 22:00 Temperature 98.7 F 98.0 F Pulse Rate 84 77 Respiratory Rate 16 20 Blood Pressure 107/59 L 122/51 L Pulse Oximetry 100 98 98 02/13/21 06:00 02/13/21 09:30 02/13/21 09:32 Temperature 97.6 F Pulse Rate 78 72 88 Respiratory Rate 18 Blood Pressure 116/48 L 110/51 L 111/64 Pulse Oximetry 96 02/13/21 09:34 Temperature Pulse Rate 90 Respiratory Rate Blood Pressure 115/59 L Pulse Oximetry Intake/Output Intake/Output: Intake & Output 02/10/21 02/11/21 02/12/21 02/13/21 23:59 23:59 23:59 23:59 Intake Total 1405 2064 2500 600 Output Total 600 1503 3050 600 Balance 805 561 -550 0 Meds/Results Medications: Active Medications Generic Name Dose Route Start Last Admin Trade Name Freq PRN Reason Stop Dose Admin Acetaminophen 1,000 mg 02/12/21 08:35 02/13/21 09:05 Acetaminophen 500 Mg Tablet PO 1,000 mg Q6H PRN Administration Mild Pain (1-3) or Fever Cefdinir 300 mg 02/12/21 09:00 02/13/21 09:01 Cefdinir 300 Mg Capsule PO 02/17/21 09:01 300 mg Q12HR PRUDENCE Administration Cyclobenzaprine HCl 10 mg 02/11/21 13:10 02/12/21 00:22 Cyclobenzaprine Hcl 10 Mg Tablet PO 10 mg TID PRN Administration Spasms Latanoprost 1 drop 02/11/21 21:00 02/12/21 21:15 Latanoprost 0.005% Op Soln 2.5 Ml Btl EACH EYE 03/13/21 21:01 1 drop HS PRUDENCE Administration Meclizine HCl 12.5 mg 02/13/21 10:04 Meclizine Hcl 12.5 Mg Tablet PO 02/20/21 10:05 Q
[2021-02-13] MEDS: MECLIZINE HCL 12.5 MG TABLET PO (11:12)
[2021-02-13 14:00] VITALS: BP 111/47; PULSE 69; RESP 16; TEMP 36; O2SAT 95
[2021-02-13] MEDS: LATANOPROST 0.005% OP SOLN 2.5 ML BTL 1 DROP EACH EYE (21:48)
[2021-02-13] MEDS: MELATONIN 5 MG TABLET PO (21:49)
[2021-02-13] MEDS: traZODone HCL 50 MG TABLET 100 MG PO (21:49)
[2021-02-13 22:00] VITALS: BP 127/53; PULSE 68; RESP 20; TEMP 36.1; O2SAT 99
[2021-02-14 06:00] VITALS: BP 111/46; PULSE 78; RESP 18; TEMP 36.1; O2SAT 97
[2021-02-14 08:00] VITALS: BP 123/53; PULSE 74; RESP 16; TEMP 36.4; O2SAT 98
[2021-02-14] MEDS: OPTI-GEN TAB 1 TABLET PO (08:25)
[2021-02-14] MEDS: PANTOPRAZOLE 40 MG TABLET PO (08:25)
[2021-02-14] MEDS: CEFDINIR 300 MG CAPSULE PO (08:25)
[2021-02-14] MEDS: MULTIVITAMINS /C LUTEIN (CENTRUM SILVER) TABLET *BKC 1 TAB PO (08:25)
[2021-02-14 08:29] LABS: Basophils Percent Auto 0.5 % (0.2-1.2); Eosinophils Absolute Auto 0.3 K/mm3 (0-0.3); Eosinophils Percent Auto 3.5 % (0-4.4); Hematocrit 28.6 % (37.0-47.0); Hemoglobin 9.2 g/dL (12.0-15.0); Immature Granulocyte Absolute 0.04 K/mm3 (0.00-0.031); Immature Granulocyte Percent A 0.5 % (0-0.5); Lymphocytes Percent Auto 25.1 % (18.3-44.2); Mean Corpuscular HGB Conc 32.2 g/dl (32-36); Mean Corpuscular Hemoglobin 29.1 pg (26-34); Mean Corpuscular Volume 90.5 fl (80-100); Mean Platelet Volume 10.3 fl (7.4-10.4); Monocytes Percent Auto 11.9 % (2.6-8.5); Neutrophils Absolute Auto 4.7 K/mm3 (1.3-6.7); Neutrophils Percent Auto 58.5 % (45.5-73.1); Platelet Count Result 321 k/mm3 (150-375); Red Blood Count 3.16 M/mm3 (4.2-5.4); Red Cell Distribution Width 15.7 % (11.5-14.5)
[2021-02-14 08:39] LABS: Alanine Aminotransferase 28 U/L (4-35); Alkaline Phosphatase 43 U/L (38-126); Anion Gap 6 mmol/L (8-16); Aspartate Amino Transferase 31 U/L (14-36); Bilirubin,Total 0.2 mg/dL (0.2-1.3); Blood Urea Nitrogen 15 mg/dL (7-17); Calcium 9.3 mg/dL (8.4-10.2); Carbon Dioxide 28 mmol/L (22-30); Chloride 106 mmol/L (98-107); Estimated CRCL calculation 52 ml/min; Estimated Glomerular Filt Rate > 60; Glucose 95 mg/dL (65-105); Potassium 3.7 mmol/L (3.4-5.0); Sodium 140 mmol/L (137-145)
[2021-02-14 10:04] LABS: Hematocrit 29.2 % (37.0-47.0); Hemoglobin 9.3 g/dL (12.0-15.0)
--- NOTE | 2021-02-14 10:45 | SUR.PHASEII ---
02/10/21 1500: PT ENTERED POST OP, RESTING QUIETLY, VSS. SON JOSAFAT AT BEDSIDE. 1506: DR SOLARES IN ROOM AND SPOKE WITH PT AND SON. 1510: PT RESTLESS IN BED, MOANING, HOLDING ABDOMEN. BLOOD PRESSURE 130/105. PT UNABLE TO LAY STILL WHILE B/P TAKES. RN'S ATTEMPTING TO RELAX PT, HEATED BLANKET PLACED TO ABDOMEN. REPORT CALLED TO URSZULA WEBB ON 3RD FLOOR. 1520: PT THRASHING IN BED, MOANING LOUDLY, HOLDING ABDOMEN, PT STATES SHARP PAIN TO ABDOMEN. DR SOLARES MADE AWARE AND BACK TO SEE PT. PT HAS DARK RED BLOOD RECTALLY. NEW ORDERS RECEIVED FOR MORPHINE 1MG IVP. 1530: MORPHINE GIVEN PER ORDERS, PT REMAIN RESTLESS IN BED, PT REPOSITIONED WITH HEAT TO ABDOMEN. SON REMAINS AT BEDSIDE. 1545: PT RESTING QUIETLY WITH OCCASIONAL PAINS TO ABDOMEN. BLOOD PRESSURE 129/60. DR SOLARES AT BEDSIDE AND UPDATING HOSPITALIST. 1600: PT REMAINS COMFORTABLE WITH SON AT BEDSIDE. 1614: IV TO LEFT AC DISCONTINUED AND NEW IV PLACED TO RIGHT AC. 1620: UPDATED REPORT CALLED TO URSZULA WEBB. PT TRANSFERRED TO ROOM [id number] PER STRETCHER WITH SON AT BEDSIDE.
--- NOTE | 2021-02-14 11:25 | PCDIET ---
Received phone call from patient's son, Gustavo. Discussed low fiber diet ordered and answered several questions. Low fiber/soft handout added to patient instructions.
--- NOTE | 2021-02-14 12:37 | PM.DS ---
DS: Admitting Diagnosis Admitting Diagnosis Admitting Diagnosis: Dizziness DS: Discharge Diagnosis Discharge Diagnosis (1) Acute anemia: Code(s): D64.9 - Anemia, unspecified Status: Acute (2) GI bleed: Code(s): K92.2 - Gastrointestinal hemorrhage, unspecified Status: Acute (3) Sepsis: Qualifiers: Sepsis acute organ dysfunction status: unspecified Sepsis type: sepsis due to unspecified organism Qualified Code(s): A41.9 - Sepsis, unspecified organism Code(s): A41.9 - Sepsis, unspecified organism Status: Acute (4) Urinary tract infection: Qualifiers: Hematuria presence: without hematuria Urinary tract infection type: site unspecified Qualified Code(s): N39.0 - Urinary tract infection, site not specified Code(s): N39.0 - Urinary tract infection, site not specified Status: Acute (5) Near syncope: Code(s): R55 - Syncope and collapse Status: Acute (6) Hypokalemia: Code(s): E87.6 - Hypokalemia Status: Acute DS: Summary Hospital Course Reason for hospitalization: 80-year-old female with a history of hypertension and TIA here for dizziness. Please see H&P for details. Hospital Course: To the ED for complaints of dizziness. Chest x-ray was clear. Brain CT was clear. CT of the abdomen and pelvis showed duodenitis. [place] 117[address]. Her blood pressure on admission was 81/63. Hemoglobin was 8.4 but dropped to 5.8. She was guaiac positive. LFTs and electrolytes within normal limits. UA was consistent with UTI. Of packed red blood cells with last transfusion on February 10. She was seen by GI. EGD showed esophagus was normal. Showed a small hiatal hernia. She had nonbleeding gastric ulcer noted. She had a bleeding duodenal ulcer that was injected and cauterized. Please see EGD report for details. Urine culture grew E coli that was relatively latham sensitive. Blood cultures are no growth today. She was treated with antibiotics. Hemoglobin climbed to the 9 range and there a remains stable. She work with PT and OT. Patient was complaining of chronic left flank pain that occurs with standing better with rest. This is been going on for many months. Therapist worked with patient on day of discharge. Patient did not have any of the left flank pain with standing. She was able to do stairs and ambulate with a walker independently. Blood pressure remains stable. Patient had minimal dizziness with this activity. Therapist still recommended home health. Patient overall did well later be discharged home with close follow-up. Discussed with GI about discharge plan. Status at Discharge Cognitive/behavioral status at discharge: Stable Time Spent with Patient Time attestation: Total time spent providing and/or coordinating discharge services: 40 minutes Time spent: Greater than 30 minutes Exam Narrative: Exam Narrative: AF 97.5 123/53 74 16 98% Gen - NARD Chest - CTA bilaterally, nml RR CV - RRR S1/S2 with a II/ systolic murmur heard loudest in the left lower sternal border Abd - Soft, NT/ND, Positive BS Back -no cervical/thoracic/lumbar midline pain. No CVA tenderness. Ext - No pedal edema. Normal left hip range of motion. Neuro - Alert and oriented. Nonfocal exam. Hard of hearing Psych - Nml mood and affect Skin - Warm and dry DS: Data Data Completed and Pending Pending studies at discharge: Pending at discharge 02/10/21 15:40 Surgical [PTH] Routine Labs on day of discharge: Labs from last 24 hours 02/14/21 02/14/21 02/14/21 09:58 07:43 07:43 WBC 8.0 RBC 3.16 L Hgb 9.3 L 9.2 L Hct 29.2 L 28.6 L MCV 90.5 MCH 29.1 MCHC 32.2 RDW 15.7 H Plt Count 321 D MPV 10.3 Immature Gran % (Auto) 0.5 Neut % (Auto) 58.5 Lymph % (Auto) 25.1 Mccracken % (Auto) 11.9 H Eos % (Auto) 3.5 Baso % (Auto) 0.5 Lymph # (Auto) 2.00 M[place]racken # (Auto) 1.0 H Eos # (Au
--- NOTE | 2021-02-20 13:14 | PC.NURSE ---
Blood cx are negative. Sputum cx is negative
== END 2021-02-14 13:48 | disposition home health service (06) ==
LOC: ANHED 02-10 01:24 → ANH3MEDSUR 02-10 02:09 → ANHIMU 02-10 18:24 → ANH2MED 02-11 15:59
PROVIDERS: Internal Medicine; Internal Medicine Gastroenterology; Physician Assistant; Admitting Provider Internal Medicine; Emergency Provider Emergency Medicine; PCP Internal Medicine; Visit Provider Internal Medicine
PROC: 0DJ08ZZ Inspection of Upper Intestinal Tract, Via Natural or Artificial Opening Endoscopic (ICD-10-PCS; CPT 43235; principal; 2021-02-10 14:10)
DX: D62 Acute posthemorrhagic anemia (principal); K26.4 Chronic or unspecified duodenal ulcer with hemorrhage; N39.0 Urinary tract infection, site not specified; I25.10 Atherosclerotic heart disease of native coronary artery without angina pectoris; I10 Essential (primary) hypertension; E78.5 Hyperlipidemia, unspecified; Z79.82 Long term (current) use of aspirin; Z86.73 Personal history of transient ischemic attack (TIA), and cerebral infarction without residual deficits; G62.9 Polyneuropathy, unspecified; M21.372 Foot drop, left foot; H35.30 Unspecified macular degeneration; Z66 Do not resuscitate; Z87.891 Personal history of nicotine dependence; E86.9 Volume depletion, unspecified; Z79.02 Long term (current) use of antithrombotics/antiplatelets; Z79.1 Long term (current) use of non-steroidal anti-inflammatories (NSAID); K44.9 Diaphragmatic hernia without obstruction or gangrene; K25.9 Gastric ulcer, unspecified as acute or chronic, without hemorrhage or perforation; E87.6 Hypokalemia; R10.9 Unspecified abdominal pain; G89.29 Other chronic pain
CPT/HCPCS: 36415; 36430; 70450; 71045; 74176; 80048; 80053; 81001; 82274; 83605; 83690; 83735; 85014; 85018; 85025; 85027; 86850; 86900; 86901; 86923; 87040; 87045; 87046; 87077; 87081; 87086; 87088; 87186; 87427; 88305; 93005; 96361; 96365; 97110; 97116; 97162; 97165; 97530; 99285; A9270; C9113; J0171; J0696; J2270; J2704; J3480; J7030; J7050; J7060; J7120; P9016

== ENCOUNTER 2021-05-03 01:41 | Day surgery (SDC) | payer MEDICARE, SELFPAY ==
[2021-05-03 06:39] VITALS: BP 149/56; PULSE 98; RESP 16; TEMP 35.9; O2SAT 100; BMI 20.8
[2021-05-03] MEDS: LACTATED RINGERS 1,000 ML 150 ML IV CONT (06:55)
--- NOTE | 2021-05-03 07:29 | PM.HPGS ---
History of Present Illness History of Present Illness Consent: Risks, benefits, and alternatives have been discussed and questions answered. Patient agrees to proceed with procedure. Chief complaint: gastric ulcer Narrative: Shalini Lion is a 80 year old female with PUD and gib 3 months ago, now using protonix bid Review of Systems Constitutional: Constitutional: Denies headache(s) and Denies weakness Eyes: Eyes: Denies blurry vision ENT: Reports Normal hearing present, Denies headache(s) and Denies neck pain Cardiovascular: Cardiovascular: Denies chest pain and Denies dyspnea Respiratory: Respiratory: Denies dyspnea Gastrointestinal: Gastrointestinal: Reports no additional gastrointestinal complaints Genitourinary: Genitourinary: Denies dysuria Musculoskeletal: Musculoskeletal: Denies neck pain Integumentary/Breasts: Skin/Breast: Denies dry skin Neurologic: Reports Normal hearing present, Denies headache(s) and Denies weakness Psychiatric: Psychiatric: Denies anxiety Endocrine: Endocrine: Denies change in body appearance Hematologic/Lymphatic: Hematologic/Lymphatic: Denies easy bleeding Allergic/Immunologic: Allergic/Immunologic: Denies urticaria PMF Past Medical History Medical History (Updated 02/13/21 @ 08:20 by Bertha Hamlin MD) Abnormal CT of the abdomen Acute blood loss anemia Duodenal ulcer Essential (primary) hypertension Foot drop, left Hypotension Macular degeneration Melena Screening for breast cancer TIA (transient ischemic attack) Surgical History Surgical History History of abdominoplasty History of back surgery L4-L5 disc surgery History of tonsillectomy Family History Family History Father Malignant neoplasm of prostate Family history of heart disease in male family member before age 55 Mother ALS (amyotrophic lateral sclerosis) Sibling Parkinson disease Social History Social History Social History: Ms. Lion lives at home alone. She is mostly independent in her activities and her son lives nearby to help her as needed. She uses a walker for ambulation. 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 She designates her son, Gustavo, as her surrogate decision maker and would like to be listed as a DNR. Smoking packs per day: 1.5 Smoking cigarettes per day: 30.0 Years smoked: 1 Smoking pack-years: 1.50 Smoking status: Former smoker Second hand tobacco smoke exposure: No Smoking end date: 09/16/1959 Additional smoking assessment comments: when a teenager Alcohol intake: current Alcohol use details: 2 times a year Substance use: never Living arrangements: alone Gender identity (if verbalized by the patient): Female Spiritual care concerns: No Meds Home Medications and Allergies Home Medications Medication Instructions Recorded Confirmed Type aspirin 81 mg tablet,delayed 81 mg PO DAILY 09/02/19 04/20/21 History release clopidogrel 75 mg tablet 75 mg PO DAILY #90 tablet 05/11/20 04/20/21 Rx melatonin 5 mg capsule 5 mg PO DAILY cap 12/29/20 04/20/21 History Complete Multi 50+ 1 dose PO ONCE 02/10/21 04/20/21 History PreserVision AREDS 1 dose PO BID 02/10/21 04/20/21 History amlodipine 5 mg PO DAILY 02/10/21 04/20/21 History Lumigan 1 drp EACH EYE HS 02/11/21 04/20/21 History pantoprazole 40 mg PO Q12HR #60 tablet 02/13/21 04/20/21 Rx acetaminophen 650 mg 650 mg PO Q12H 03/09/21 04/20/21 History tablet,extended release trazodone 50 mg tablet 150 mg PO HS PRN #270 tablet 04/10/21 04/20/21 Rx Allergies Allergy/AdvReac Type Severity Reaction Status Date / Time No Known Allergies Allergy Verified 05/03/21 06:35 Vital Signs Vital Signs - 24 hr 05/03/21 06:39 Temperature 96.7 F L Pulse Rate 98 Respiratory Rate 16
[2021-05-03 07:49] VITALS: BP 127/59; PULSE 57; RESP 16; O2SAT 99
[2021-05-03 07:59] VITALS: BP 123/51; PULSE 56; RESP 18; O2SAT 98
[2021-05-03 08:09] VITALS: BP 131/55; PULSE 60; RESP 21; O2SAT 100
== END 2021-05-03 08:15 | disposition home or self-care (01) ==
PROVIDERS: PCP Internal Medicine; Visit Provider Internal Medicine Gastroenterology
PROC: 0DJ08ZZ Inspection of Upper Intestinal Tract, Via Natural or Artificial Opening Endoscopic (ICD-10-PCS; CPT 43235; principal; 2021-05-03 07:30)
DX: K26.4 Chronic or unspecified duodenal ulcer with hemorrhage (principal); K44.9 Diaphragmatic hernia without obstruction or gangrene; K31.5 Obstruction of duodenum; K29.50 Unspecified chronic gastritis without bleeding; I10 Essential (primary) hypertension; I95.9 Hypotension, unspecified; Z86.73 Personal history of transient ischemic attack (TIA), and cerebral infarction without residual deficits; Z87.891 Personal history of nicotine dependence; Z79.82 Long term (current) use of aspirin
CPT/HCPCS: 43239; 43245; 88305; C1726; J2704; J7120

== ENCOUNTER 2021-05-04 12:48 | Inpatient (IN) | payer MEDICARE, SELFPAY ==
[2021-05-04] VITALS (38 sets, daily range): BP systolic 92–142; BP diastolic 46–101; PULSE 69–100; RESP 12–18; TEMP 35.7–37.2; O2SAT 95–100; BMI 20.2
--- NOTE | 2021-05-04 13:04 | ECG_ITS ---
Measurements Intervals [place] Rate: 76 P: 38 ID: 179 QRS: 5 QRSD: 89 T: 52 QT: 374 QTc: 422 Interpretive Statements SINUS RHYTHM CONSIDER INFERIOR INFARCT, AGE INDETERMINATE BASELINE ARTIFACT- I, III, AVF, V4-V5 ABNORMAL ECG Electronically Signed On 05-04-2021 13:26:12 CDT by Partha Oakley D.O.
--- NOTE | 2021-05-04 13:04 | ED.WEAKNESS ---
HPI - Weakness General Chief complaint: Weakness Stated complaint: weakness post endoscopy yesterday Time Seen by Provider: 05/04/21 13:04 Source: patient and family Mode of arrival: wheelchair Limitations: no limitations History of Present Illness HPI Narrative: The patient is an 80 yo female with a history of hypertension, duodenitis with GI bleed, recently admitted to this facility in January, who presents for evaluation of weakness. Patient reports that she had an endoscopy/colonoscopy yesterday with stricture and dilatation, states that the report from that was no current bleeding ulcers visualized. Patient awakened this morning after feeling very well yesterday with weakness, and near syncopal events. States she was unable to stand secondary to weakness and recurrent near passing out. Patient son was able to transport her to our facility for assessment given symptoms. Pt states this is how she felt when she had GI bleeding before. Patient states that she has had large volume bowel movements with diarrhea, states that there has not been any abvious blood present in them. She reports lightheadedness and dizziness with standing, states this is resolved when she is lying still. She denies any focal weakness or numbness. She denies fever, headache, nausea, vomiting. No vision changes. Patient has been compliant with her medications. She denies abdominal pain or dysuria. Related Data Home Medications Medication Instructions Recorded Confirmed aspirin 81 mg tablet,delayed 81 mg PO DAILY 09/02/19 04/20/21 release melatonin 5 mg capsule 5 mg PO DAILY cap 12/29/20 04/20/21 Complete Multi 50+ 1 dose PO ONCE 02/10/21 04/20/21 PreserVision AREDS 1 dose PO BID 02/10/21 04/20/21 amlodipine 5 mg PO DAILY 02/10/21 04/20/21 Lumigan 1 drp EACH EYE HS 02/11/21 04/20/21 acetaminophen 650 mg 650 mg PO Q12H 03/09/21 04/20/21 tablet,extended release Allergies Allergy/AdvReac Type Severity Reaction Status Date / Time No Known Allergies Allergy Verified 05/04/21 13:29 Review of Systems Review of Systems: CONSTITUTIONAL: Denies fever, chills, or sweats. EYES: Denies visual changes, redness, or discharge. ENT: Denies rhinorrhea, congestion, sore throat, or otalgia. CARDIOVASCULAR: Denies chest pain, palpitations, or edema. RESPIRATORY: Denies cough or dyspnea. GASTROINTESTINAL: Denies abdominal pain, nausea, vomiting, or diarrhea. GENITOURINARY: Denies dysuria or hematuria. SKIN: Denies rash or itching. MUSCULOSKELETAL: Denies back pain, joint pain, or myalgia. NEUROLOGIC: Denies headache, numbness, reports diffuse weakness, reports lightheadedness PMFSH Past Medical History Medical History Abnormal CT of the abdomen Acute blood loss anemia Duodenal ulcer Essential (primary) hypertension Foot drop, left Hypotension Macular degeneration Melena Screening for breast cancer TIA (transient ischemic attack) Surgical History Surgical History History of abdominoplasty History of back surgery L4-L5 disc surgery History of tonsillectomy Family History Family History Father Malignant neoplasm of prostate Family history of heart disease in male family member before age 55 Mother ALS (amyotrophic lateral sclerosis) Sibling Parkinson disease Social History Social History Social History: Ms. Lion lives at home alone. She is mostly independent in her activities and her son lives nearby to help her as needed. She uses a walker for ambulation. 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 She designates her son, Gustavo, as her surrogate decision maker and would like to be listed as a DNR. Smoking packs per day: 1.5 Smoking cigarettes per day: 30.0 Years smoked: 1 Smoking pack-years:
[2021-05-04 14:00] LABS: Basophils Percent Auto 0.2 % (0.2-1.2); Eosinophils Percent Auto 0.1 % (0-4.4); Hematocrit 21.6 % (37.0-47.0); Immature Granulocyte Absolute 0.04 K/mm3 (0.00-0.031); Immature Granulocyte Percent A 0.4 % (0-0.5); Lymphocytes Absolute Auto 1.55 K/mm3 (0.9-3.2); Lymphocytes Percent Auto 15.2 % (18.3-44.2); Mean Corpuscular HGB Conc 30.1 g/dl (32-36); Mean Corpuscular Hemoglobin 23.5 pg (26-34); Mean Platelet Volume 9.8 fl (7.4-10.4); Monocytes Absolute Auto 0.6 K/mm3 (0.1-0.6); Neutrophils Percent Auto 78.1 % (45.5-73.1); Platelet Count Result 306 k/mm3 (150-375); Red Blood Count 2.77 M/mm3 (4.2-5.4); Red Cell Distribution Width 19.1 % (11.5-14.5); White Blood Count 10.2 K/mm3 (4.5-10.0)
--- NOTE | 2021-05-04 14:00 | PC.NURSE ---
Talked to Dickson in lab at 14:00 to add on a Trop I
[2021-05-04 14:11] LABS: Add Urine Microscopic? YES; Appearance Urine Clear (Clear); Bilirubin Urine Negative (Negative); Color Urine Yellow (Yellow); Glucose Urine UA Negative (Negative); Ketones Urine Negative (Negative); Leukocyte Esterase Ur 3+ LEU/UL (Negative); Mucus Urine Rare /lpf; Nitrate Urine Negative (Negative); Protein Urine 1+ mg/dL (Negative); RBC Urine 0-2 /hpf (0-2); Specific Grav Ur 1.027 (1.001-1.035); Squamous Epithelial Cell Urine Occasional /hpf (Few); Urobilinogen Urine Negative mg/dL (<2.0); WBC Urine 51-75 /hpf
[2021-05-04] MEDS: SODIUM CHLORIDE 0.9% IV 1,000 ML 999 ML IV CONT (14:13)
[2021-05-04 14:15] LABS: Lactic Acid Reflex 1.1 mmol/L (0.7-2.1)
[2021-05-04 14:16] LABS: Alanine Aminotransferase 10 U/L (4-35); Albumin Level 3.6 g/dL (3.5-5.1); Alkaline Phosphatase 44 U/L (38-126); Anion Gap 5 mmol/L (8-16); Aspartate Amino Transferase 17 U/L (14-36); Bilirubin,Total 0.1 mg/dL (0.2-1.3); Blood Urea Nitrogen 55 mg/dL (7-17); Carbon Dioxide 26 mmol/L (22-30); Chloride 108 mmol/L (98-107); Estimated CRCL calculation 51 ml/min; Estimated Glomerular Filt Rate > 60; Glucose 117 mg/dL (65-110); Potassium 4.3 mmol/L (3.4-5.0); Prothrombin Time 13.5 Seconds (11.1-14.7); Sodium 139 mmol/L (137-145)
[2021-05-04 14:17] LABS: Hemoglobin 6.5 g/dL (12.0-15.0); Partial Thromboplastin Time 26.4 SECONDS (22.3-36.8)
[2021-05-04 14:18] LABS: Blood Urine Negative (Negative)
[2021-05-04 14:36] LABS: Troponin I < 0.012 ng/mL (0.000-0.034)
[2021-05-04] MEDS: PANTOPRAZOLE SODIUM IV 40 MG VIAL 80 MG IV PUSH (15:52)
[2021-05-04] MEDS: SODIUM CHLORIDE 0.9% IV 250 ML 30 ML IV CONT (16:51)
[2021-05-04] MEDS: TUBING, BLOOD SET 1 EACH XX (16:58)
--- NOTE | 2021-05-04 18:35 | PC.NURSE ---
1st Jose/[email or web address] Angela Anguiano Admission Note: The patient,Shalini Lion,80 y/o, was given written information regarding hospital policies, unit procedures and contact persons. Patient's smoking status: Former smoker.
--- NOTE | 2021-05-04 19:00 | PM.IMHP ---
H&P: HPI History of Present Illness Date/Time: 05/04/21 19:00 Chief Complaint: Dark stools and weakness. Narrative: This is a pleasant 80-year-old female with history of TIA, hypertension, diverticulosis, and peptic ulcers who presented to the emergency department earlier today from home for evaluation of dark stools and weakness. The patient is known to the hospitalist service with admission January 2021 with anemia secondary to gastric and duodenal ulcers. She had a repeat endoscopy per Dr. Mehta yesterday (05/03/2021) which showed resolution of the ulcers though gastritis and duodenal stricture were noted. Biopsy was obtained and the stricture was dilated. She felt just fine when she got home though was feeling a bit weak and lightheaded when she woke this morning. Patient is color blind but thought that her stool looked dark this morning. She proceeded to have breakfast and shortly thereafter she began feeling weak and dizzy at which time she had the urge to have a bowel movement where she reportedly passed a significant amount of blood. Her hemoglobin and hematocrit were 6.5 and 21.6% on arrival to the emergency department today and she is receiving her 1st transfusion at the time my evaluation. She denies syncope, chest pain, shortness of breath, abdominal pain, epigastric pain, nausea, and vomiting. She is not taking NSAIDs but has been back on her clopidogrel. Review of Systems Review of Systems: Twelve systems were reviewed with pertinent positives and negatives as per HPI. No fever, chills, or sweats. No recent cold or flu symptoms. She denies exposure to those positive for COVID-19. Except as documented, all other systems were reviewed and are negative. [facility] Past Medical History Medical History (Updated 05/04/21 @ 22:47 by Yessi Mcknight PA-C) Arthritis Diverticulitis Duodenal ulcer (01/2021) Essential (primary) hypertension Foot drop, left Glaucoma Macular degeneration Scoliosis Transient ischemic attack Surgical History Surgical History History of abdominoplasty History of back surgery L4-L5 disc surgery History of tonsillectomy Family History Family History Father Malignant neoplasm of prostate Family history of heart disease in male family member before age 55 Mother ALS (amyotrophic lateral sclerosis) Sibling Parkinson disease Social History Social History (Updated 05/04/21 @ 22:46 by Yessi Mcknight PA-C) Social History: Ms. Lion lives at home alone. Her fairly recently. She is mostly independent in her activities and her son lives nearby to help her as needed. She uses a walker for ambulation. 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 She designates her son, Gustavo, as her surrogate decision maker and would like to be listed as a DNR. Smoking packs per day: 1.5 Smoking cigarettes per day: 30.0 Years smoked: 1 Smoking pack-years: 1.50 Smoking status: Never smoker Second hand tobacco smoke exposure: No Smoking end date: 09/16/1959 Additional smoking assessment comments: when a teenager Alcohol use details: 2 times a year Substance use: never Gender identity (if verbalized by the patient): Female Spiritual care concerns: No Meds Home Medications and Allergies Home Medications Medication Instructions Recorded Confirmed Type aspirin 81 mg tablet,delayed 81 mg PO DAILY 09/02/19 05/04/21 History release clopidogrel 75 mg tablet 75 mg PO DAILY #90 tablet 05/11/20 05/04/21 Rx melatonin 5 mg capsule 5 mg PO DAILY cap 12/29/20 05/04/21 History Complete Multi 50+ 1 dose PO ONCE 02/10/21 05/04/21 History PreserVision AREDS 1 dose PO BID 02/10/21 05/04/21 History amlodipine 5 mg PO DAILY 02/10/21 05/04/21 History Lumigan 1 drp EACH EYE HS 02/11/21 05/04/21 History pantoprazole 40 mg PO Q12HR #6
[2021-05-04] MEDS: ACETAMINOPHEN 325 MG TABLET 650 MG PO (23:58)
[2021-05-04] MEDS: traZODone HCL 50 MG TABLET 150 MG PO (23:58)
[2021-05-04] MEDS: LATANOPROST 0.005% OP SOLN 2.5 ML BTL 1 DROP EACH EYE (23:58)
[2021-05-04] MEDS: MELATONIN 5 MG TABLET PO (23:59)
[2021-05-05] VITALS (23 sets, daily range): BP systolic 97–177; BP diastolic 39–87; PULSE 69–104; RESP 18–26; TEMP 35.6–37.1; O2SAT 94–100
[2021-05-05 01:52] LABS: Hematocrit 23.6 % (37.0-47.0); Hemoglobin 7.5 g/dL (12.0-15.0)
[2021-05-05 06:11] LABS: Hematocrit 21.7 % (37.0-47.0); Mean Corpuscular HGB Conc 31.3 g/dl (32-36); Mean Corpuscular Hemoglobin 24.2 pg (26-34); Mean Corpuscular Volume 77.2 fl (80-100); Mean Platelet Volume 10.1 fl (7.4-10.4); Platelet Count Result 195 k/mm3 (150-375); Red Blood Count 2.81 M/mm3 (4.2-5.4); Red Cell Distribution Width 17.4 % (11.5-14.5); White Blood Count 11.1 K/mm3 (4.5-10.0)
[2021-05-05 06:18] LABS: Hemoglobin 6.8 g/dL (12.0-15.0)
[2021-05-05 08:34] LABS: Anion Gap 3 mmol/L (8-16); Blood Urea Nitrogen 34 mg/dL (7-17); Carbon Dioxide 24 mmol/L (22-30); Chloride 111 mmol/L (98-107); Estimated CRCL calculation 61 ml/min; Estimated Glomerular Filt Rate > 60; Glucose 88 mg/dL (65-110); Magnesium 1.7 mg/dL (1.6-2.3); Potassium 4.1 mmol/L (3.4-5.0); Sodium 138 mmol/L (137-145)
--- NOTE | 2021-05-05 09:17 | WPDANESEPPF ---
Anes - Initial Pre Proc Eval Procedure: Operation Date: 05/05/21 12:45 Proposed Procedures p Esophagogastroduodenoscopy - Arturo Mehta MD Date/Time: 05/05/21 09:17 Surgeon: Nessa Bird PA-C Pre Op Diagnosis: GI Bleed, symptomatic anemia Patient Data Age: 80 Gender: F Height: 1.6 m Weight: 59.3 kg Last Vital Signs Temp 35.9 C L 05/05/21 08:22 Pulse 88 05/05/21 08:22 Resp 18 05/05/21 08:22 BP 128/54 L 05/05/21 08:22 Pulse Ox 97 05/05/21 08:22 Allergies Allergy/AdvReac Type Severity Reaction Status Date / Time No Known Allergies Allergy Verified 05/05/21 11:52 Home Medications Medication Instructions Recorded Confirmed Type aspirin 81 mg tablet,delayed 81 mg PO DAILY 09/02/19 05/04/21 History release clopidogrel 75 mg tablet 75 mg PO DAILY #90 tablet 05/11/20 05/04/21 Rx melatonin 5 mg capsule 5 mg PO DAILY cap 12/29/20 05/04/21 History Complete Multi 50+ 1 dose PO ONCE 02/10/21 05/04/21 History PreserVision AREDS 1 dose PO BID 02/10/21 05/04/21 History amlodipine 5 mg PO DAILY 02/10/21 05/04/21 History Lumigan 1 drp EACH EYE HS 02/11/21 05/04/21 History pantoprazole 40 mg PO Q12HR #60 tablet 02/13/21 05/04/21 Rx acetaminophen 650 mg 650 mg PO Q12H 03/09/21 05/04/21 History tablet,extended release trazodone 50 mg tablet 150 mg PO HS PRN #270 tablet 04/10/21 05/04/21 Rx sodium chloride [[place] Nasal] spray INTRANASAL 05/04/21 History Laboratory Tests 05/04/21 05/04/21 05/04/21 13:43 13:44 13:44 WBC 10.2 K/mm3 H K/mm3 (4.5-10.0) RBC 2.77 M/mm3 L M/mm3 (4.2-5.4) Hgb 6.5 g/dL L* g/dL (12.0-15.0) Hct 21.6 % L % (37.0-47.0) MCV 78.0 fl L fl (80-100) MCH 23.5 pg L pg (26-34) MCHC 30.1 g/dl L g/dl (32-36) RDW 19.1 % H % (11.5-14.5) Plt Count 306 k/mm3 k/mm3 (150-375) MPV 9.8 fl fl (7.4-10.4) Immature Gran % (Auto) 0.4 % % (0-0.5) Neut % (Auto) 78.1 % H % (45.5-73.1) Lymph % (Auto) 15.2 % L % (18.3-44.2) Garvin % (Auto) 6.0 % % (2.6-8.5) Eos % (Auto) 0.1 % % (0-4.4) Baso % (Auto) 0.2 % % (0.2-1.2) Lymph # (Auto) 1.55 K/mm3 K/mm3 (0.9-3.2) Garvin # (Auto) 0.6 K/mm3 K/mm3 (0.1-0.6) Eos # (Auto) 0.0 K/mm3 K/mm3 (0-0.3) Baso # (Auto) 0.0 K/mm3 K/mm3 (0.0-0.1) Abs Immat Gran (auto) 0.04 K/mm3 H K/mm3 (0.00-0.031) Absolute Neuts (auto) 8.0 K/mm3 H K/mm3 (1.3-6.7) Absolute Nucleated RBC 0.0 K/mm3 K/mm3 (0.0-0.012) Nucleated RBC % 0.0 % % (0.0-0.2) PT INR APTT Sodium 139 mmol/L mmol/L (137-145) Potassium 4.3 mmol/L mmol/L (3.4-5.0) Chloride 108 mmol/L H mmol/L (98-107) Carbon Dioxide 26 mmol/L mmol/L (22-30) Anion Gap 5 mmol/L L mmol/L (8-16) BUN 55 mg/dL H D mg/dL (7-17) Creatinine 0.60 mg/dL L mg/dL (0.7-1.0) Estim Creat Clear Calc 51 ml/min ml/min Estimated GFR > 60 (59 - ) Glucose 117 mg/dL H mg/dL (65-110) Lactic Acid Calcium 9.0 mg/dL mg/dL (8.4-10.2) Magnesium Total Bilirubin 0.1 mg/dL L mg/dL (0.2-1.3) AST 17 U/L U/L (14-36) ALT 10 U/L U/L (4-35) Alkaline Phosphatase 44 U/L U/L (38-126) Troponin I < 0.012 ng/mL ng/mL (0.000-0.034) Total Protein 6.0 g/dL L g/dL (6.3-8.2) Albumin 3.6 g/dL g/dL (3.5-5.1) Urine Color Urine Appearance Urine pH Ur Specific Douglass Urine Protein Urine Glucose (UA) Urine Ketones Ur Blood (Man) Urine Nitrate Urine Bilirubin Urine Urobilinogen Leukocyte E
[2021-05-05] MEDS: LACTATED RINGERS 1,000 ML 150 ML IV CONT (11:55)
--- NOTE | 2021-05-05 12:20 | WPDGICN ---
Assessment and Plan Assessment and plan (1) GI bleed: Code(s): K92.2 - Gastrointestinal hemorrhage, unspecified Status: Acute Assessment and Plan: egd 2 days ago with dilation of duodenal stricture from previous ulcer, most likely source of bleeding will assess again with egd, discuss with her son continue with iv protonix keep hb>7 (2) Duodenal ulcer: Onset Date: 01/2021 Code(s): K26.9 - Duodenal ulcer, unspecified as acute or chronic, without hemorrhage or perforation Status: Acute Assessment and Plan: iv protonix and egd carlene (3) Acute blood loss anemia: Code(s): D62 - Acute posthemorrhagic anemia Status: Acute Assessment and Plan: she is getting blood transfusion to keep hb>7 hold plavix (4) Duodenal stricture: Code(s): K31.5 - Obstruction of duodenum Status: Acute (5) Essential (primary) hypertension: Code(s): I10 - Essential (primary) hypertension Status: Acute GI Consult Note Consult date/time: 05/05/21 12:20 Reason for consult: gib, melena HPI: Shalini Lion is a 80 year old female with PUD and large duodenal ulcer with previous hospitalization due to gib 3 months ago, now using protonix bid who came for outpatient EGD 2 days ago, I found only mild gastritis and stricture in juntion first and second portion duodenum, able to traverse before dilation but noted resistance therefore dilated with TTS balloon 12-15mm, no complications and she went home with instructions to still keep holding plavix. She had a good day after procedure but yesterday after having breakfast began feeling weak and dizzy and noted one large dark tarry stool, also feeling lightheaded. ER blood work showed worsening anemia with hemoglobin 6.5, admitted to floor and given 2 units prbc, now another one more unit. Son is at bedside and she is currently NPO. Review of Systems Constitutional: Constitutional: Reports weakness Eyes: Comments: blind color ENT: Reports Normal hearing present Cardiovascular: Cardiovascular: Denies chest pain Respiratory: Respiratory: Denies cough Gastrointestinal: Gastrointestinal: Reports melena Genitourinary: Genitourinary: Denies flank pain Musculoskeletal: Musculoskeletal: Reports no additional musculoskeletal complaints Integumentary/Breasts: Skin/Breast: Reports system reviewed and no additional complaints, except as docu Neurologic: Denies confusion Psychiatric: Psychiatric: Reports no additional psychiatric complaints PMFSH Past Medical History Medical History (Updated 05/05/21 @ 13:45 by Arturo Mehta MD) Arthritis Diverticulitis Duodenal stricture Duodenal ulcer (01/2021) Essential (primary) hypertension Foot drop, left Glaucoma Macular degeneration Scoliosis Transient ischemic attack Surgical History Surgical History History of abdominoplasty History of back surgery L4-L5 disc surgery History of tonsillectomy Family History Family History Father Malignant neoplasm of prostate Family history of heart disease in male family member before age 55 Mother ALS (amyotrophic lateral sclerosis) Sibling Parkinson disease Social History Social History (Updated 05/04/21 @ 22:46 by Yessi Mcknight PA-C) Social History: Ms. Lion lives at home alone. Her fairly recently. She is mostly independent in her activities and her son lives nearby to help her as needed. She uses a walker for ambulation. 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 She designates her son, Gustavo, as her surrogate decision maker and would like to be listed as a DNR. Smoking packs per day: 1.5 Smoking cigarettes per day: 30.0 Years smoked: 1 Smoking pack-years: 1.50 Smoking status: Never smoker Second hand tobacco smoke exposure:
[2021-05-05] MEDS: EPINEPHrine INJ 1 MG/10 ML SYRINGE 0.85 MG XX (13:01)
[2021-05-05] MEDS: MORPHINE SULFATE (*CRX) 2 MG/ML INJ 1 MG IV PUSH (13:30)
[2021-05-05] MEDS: MORPHINE SULFATE (*CRX) 2 MG/ML INJ IV PUSH (14:01)
[2021-05-05] MEDS: ONDANSETRON INJ 4 MG/2 ML VIAL IV PUSH (14:07)
--- NOTE | 2021-05-05 14:57 | PM.IMPN ---
Progress Note: A&P Assessment and Plan (1) Acute blood loss anemia: Code(s): D62 - Acute posthemorrhagic anemia Status: Acute Assessment and Plan: Secondary to GI bleed -EGD showed ulcer with clots and a tear from dilation. Epi was injected and the bleeding appears to have stopped at this time - hemoglobin 6.8 this morning and 2 units of PRBCs are being transfused. H&H in 1 hour after these are transfused - she is to notify us immediately if she starts having chest pain, lightheadedness dizziness or passing out - continue Protonix -hold aspirn and plavix ( on for TIA) (2) GI bleed: Code(s): K92.2 - Gastrointestinal hemorrhage, unspecified Status: Acute Assessment and Plan: as above - pain uncontrolled, increase morphine and add Tylenol - patient has had 3 mg of morphine this afternoon and is still in 9/10 pain (3) Essential (primary) hypertension: Code(s): I10 - Essential (primary) hypertension Status: Acute Assessment and Plan: last blood pressure 170/56 likely elevated more due to pain - p.r.n. hydralazine will be added due to her significant abdominal pain and inability to eat due to it Time Spent With Patient Time with patient: 25 - 35 minutes Subjective Date/time seen: 05/05/21 14:57 Interval history: Pt is a 80-year-old female here for upper GI bleed. Patient was seen today and was in a lot of pain. She states this pain is a 9/10 and located in her epigastric area. She did have some back pain that was unusual for her but it improved with the morphine. She is resting more comfortably but is in a great deal of pain. She denies chest pain, lightheadedness, dizziness, nausea or vomiting. She has not urinated yet but feels like she will have to soon. She does not like using the bedpan but will do so. Review of Systems Review of Systems: All systems reviewed & are unremarkable except as noted in HPI and below Exam Narrative: General: Well developed well nourished patient in NARD HEENT: normocephalic Neck: supple Neuro: Alert and oriented CV:RRR Resp:CTA from anterior chest Abd: Soft, non distended. pain to palpation diffusely throughout the abdomen in all quadrants but most specifically at the epigastric area. Positive bowel sounds Extremities: No swelling, erythema, or pain to palpation. Objective Data Vital Signs Vital Signs: Vital Signs - 24 hr 05/04/21 15:07 05/04/21 15:39 05/04/21 15:45 Temperature Pulse Rate 75 83 76 Respiratory Rate 14 17 15 Blood Pressure Pulse Oximetry 05/04/21 15:46 05/04/21 16:00 05/04/21 16:01 Temperature Pulse Rate 74 72 78 Respiratory Rate 18 15 17 Blood Pressure 124/55 L 125/59 L Pulse Oximetry 05/04/21 16:15 05/04/21 16:16 05/04/21 16:40 Temperature Pulse Rate 75 76 74 Respiratory Rate 15 15 17 Blood Pressure 127/62 Pulse Oximetry 05/04/21 16:45 05/04/21 16:46 05/04/21 17:00 Temperature 99.0 F Pulse Rate 78 77 70 Respiratory Rate 16 16 15 Blood Pressure 125/90 126/101 H Pulse Oximetry 99 05/04/21 17:01 05/04/21 17:24 05/04/21 17:30 Temperature 98.7 F Pulse Rate 81 74 76 Respiratory Rate 18 16 13 Blood Pressure 131/63 Pulse Oximetry 99 05/04/21 17:31 05/04/21 17:53 05/04/21 18:01 Temperature 97.7 F Pulse Rate 75 74 75 Respiratory Rate 16 16 18 Blood Pressure 142/72 H 135/63 Pulse Oximetry 99 05/04/21 19:01 05/04/21 19:53 05/04/21 20:43 Temperature 96.3 F L 98.1 F 98.1 F Pulse Rate 74 74 74 Respiratory Rate 18 18 18 Blood Pressure 132/63 128/51 L 128/51 L Pulse Oximetry 95 100 100 05/04/21 21:09 05/04/21 21:24 05/04/21 22:24 Temperature 97.6 F 96.7 F L 98.4 F Pulse Rate 80 77 73 Respiratory Rate 16 18 18 Blood Pressure 133/59 L 132/55 L 119/48 L Pulse Oximetry 99 99 99 05/04/21 23:24 05/05/21 00:06 05/05/21 00:10 Temperature 98.4 F 97 F L 96.7 F L Pulse Rate 69 97 70 Respiratory Rate 18
[2021-05-05] MEDS: SODIUM CHLORIDE 0.9% IV 250 ML 30 ML IV CONT (16:39)
[2021-05-05 19:01] LABS: Hematocrit 33.6 % (37.0-47.0)
[2021-05-05] MEDS: ACETAMINOPHEN 325 MG TABLET 650 MG PO (20:24)
[2021-05-05] MEDS: traZODone HCL 50 MG TABLET 150 MG PO (20:25)
[2021-05-05] MEDS: MELATONIN 5 MG TABLET PO (20:25)
[2021-05-05] MEDS: PANTOPRAZOLE SODIUM IV 40 MG VIAL IV PUSH (20:25)
[2021-05-05] MEDS: LATANOPROST 0.005% OP SOLN 2.5 ML BTL 1 DROP EACH EYE (20:26)
[2021-05-05] MEDS: MORPHINE SULFATE (*CRX) 4 MG/ML INJ 3 MG IV PUSH (20:33)
[2021-05-06 05:50] VITALS: BP 139/55; PULSE 86; RESP 18; TEMP 35.9; O2SAT 97
[2021-05-06 06:19] LABS: Hematocrit 30.6 % (37.0-47.0); Mean Corpuscular HGB Conc 32.7 g/dl (32-36); Mean Corpuscular Hemoglobin 27.4 pg (26-34); Mean Corpuscular Volume 83.8 fl (80-100); Mean Platelet Volume 9.9 fl (7.4-10.4); Platelet Count Result 168 k/mm3 (150-375); Red Blood Count 3.65 M/mm3 (4.2-5.4); Red Cell Distribution Width 18.7 % (11.5-14.5); White Blood Count 14.4 K/mm3 (4.5-10.0)
[2021-05-06 06:41] LABS: Anion Gap 5 mmol/L (8-16); Blood Urea Nitrogen 31 mg/dL (7-17); Calcium 8.6 mg/dL (8.4-10.2); Carbon Dioxide 25 mmol/L (22-30); Chloride 109 mmol/L (98-107); Estimated CRCL calculation 40 ml/min; Estimated Glomerular Filt Rate > 60; Glucose 94 mg/dL (65-110); Potassium 3.8 mmol/L (3.4-5.0); Sodium 139 mmol/L (137-145)
[2021-05-06] MEDS: PANTOPRAZOLE SODIUM IV 40 MG VIAL IV PUSH ×2 (08:30→21:37)
[2021-05-06] MEDS: MORPHINE SULFATE (*CRX) 4 MG/ML INJ 3 MG IV PUSH (08:30)
[2021-05-06] MEDS: OPTI-GEN TAB 1 TABLET PO ×2 (08:31→16:52)
[2021-05-06] MEDS: MULTIVITAMINS /C LUTEIN (CENTRUM SILVER) TABLET *BKC 1 TAB PO (08:31)
[2021-05-06] MEDS: ACETAMINOPHEN 325 MG TABLET 650 MG PO ×2 (08:31→21:37)
[2021-05-06 12:10] LABS: Hematocrit 27.6 % (37.0-47.0)
--- NOTE | 2021-05-06 12:53 | PM.IMPN ---
Progress Note: A&P Assessment and Plan (1) Acute blood loss anemia: Code(s): D62 - Acute posthemorrhagic anemia Status: Acute Assessment and Plan: Secondary to GI bleed -EGD showed ulcer with clots and a tear from dilation. Epi was injected and the bleeding appears to have stopped at this time - hemoglobin 6.8 on admission but was 11.0 after her blood transfusions. This morning it was 10 which is a little lower than expected so another one was recheck at noon which was 9.0. I want to make sure that she does not continue to bleed so she will be kept overnight and H&H every 6 hours will be done. - she is to notify us immediately if she starts having chest pain, lightheadedness dizziness or passing out - continue Protonix - continue to hold aspirn and plavix ( on for TIA) (2) GI bleed: Code(s): K92.2 - Gastrointestinal hemorrhage, unspecified Status: Acute Assessment and Plan: as above - pain resolved (3) Essential (primary) hypertension: Code(s): I10 - Essential (primary) hypertension Status: Acute Assessment and Plan: last blood pressure 139/55 -continue amlodipine Subjective Date/time seen: 05/06/21 12:53 Interval history: Pt is a 80-year-old female here for upper GI bleed. Patient was seen today and was not having any pain in her abdomen. She had some pain on her sacrum due to being left on the bedpan but that is about it. She still feels weak but has not gotten. She denies chest pain, shortness of breath, lightheadedness, dizziness, nausea or vomiting. She is eating and drinking well. Exam Narrative: General: Well developed well nourished patient in [facility] HEENT: normocephalic Neck: supple Neuro: Alert and oriented CV:RRR Resp:CTA Abd: Soft, non distended. no pain to palpation to the abdomen. Positive bowel sounds Extremities: No swelling, erythema, or pain to palpation. Objective Data Vital Signs Vital Signs: Vital Signs - 24 hr 05/05/21 13:03 05/05/21 13:13 05/05/21 13:23 Temperature Pulse Rate 84 85 82 Respiratory Rate 26 H 21 H 20 Blood Pressure 107/82 123/87 138/52 L Pulse Oximetry 100 99 100 05/05/21 13:53 05/05/21 14:34 05/05/21 14:49 Temperature 96.3 F L 96.0 F L 96.2 F L Pulse Rate 72 70 75 Respiratory Rate 18 18 18 Blood Pressure 154/51 H 170/56 H 177/72 H Pulse Oximetry 100 99 99 05/05/21 15:49 05/05/21 20:00 05/06/21 05:50 Temperature 96.8 F L 97 F L 96.7 F L Pulse Rate 85 77 86 Respiratory Rate 20 18 18 Blood Pressure 150/59 H 148/57 H 139/55 L Pulse Oximetry 96 96 97 Intake/Output Intake/Output: Intake & Output 05/03/21 05/04/21 05/05/21 05/06/21 23:59 23:59 23:59 23:59 Intake Total 1350 2030 430 Output Total 1650 1000 Balance 1350 380 -570 Meds/Results Medications: Active Medications Generic Name Dose Route Start Last Admin Trade Name Freq PRN Reason Stop Dose Admin Acetaminophen 650 mg 05/04/21 22:55 05/06/21 08:31 Acetaminophen 325 Mg Tablet PO 650 mg Q12HR PRUDENCE Administration Amlodipine Besylate 5 mg 05/06/21 09:00 05/06/21 08:33 Amlodipine Besylate 5 Mg Tablet PO Not Given DAILY PRUDENCE Hydralazine HCl 10 mg 05/05/21 14:50 Hydralazine Hcl 20 Mg/Ml Vial IV PUSH Q8H PRN Blood Pressure - High Acetaminophen 1,000 mg in 100 mls @ 400 mls/hr 05/05/21 14:49 05/06/21 08:26 Ofirmev 1,000 Mg Ivpb IVPB 05/06/21 14:50 Infused Q6H PRN Infusion pain, alternate with morphine Latanoprost 1 drop 05/04/21 22:55 05/05/21 20:26 Latanoprost 0.005% Op Soln 2.5 Ml Btl EACH EYE 1 drop HS PRUDENCE Administration Melatonin 5 mg 05/04/21 22:55 05/05/21 20:25 Melatonin 5 Mg Tablet PO 5 mg HS PRUDENCE Administration Morphine Sulfate 2 mg 05/06/21 11:53 Morphine Sulfate (*Crx) 2 Mg/Ml Inj IV PUSH Q4H PRN Abdominal Cramping Multivitamins/Minerals 1 tab 05/05/21 09:00 05/06/21 08:31 Multivitamins /C
[2021-05-06 14:00] VITALS: BP 120/52; PULSE 76; RESP 18; TEMP 36.1; O2SAT 96
[2021-05-06 14:20] VITALS: BP 125/46; PULSE 79
[2021-05-06 14:22] VITALS: BP 124/50; PULSE 75
[2021-05-06 14:24] VITALS: BP 117/61; PULSE 89
--- NOTE | 2021-05-06 15:08 | WPDGIPROGNO ---
Progress Note: A&P Assessment and Plan (1) Acute blood loss anemia: Code(s): D62 - Acute posthemorrhagic anemia Status: Acute Assessment and Plan: egd yesterday with epi injection and 2 clips (site of ulcerated area in site of recent dilation), at the end of scope did not see more bleeding repeat hb 9, earlier 10. 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 She walked with PT. Son is here. She had a large dark stool but no pain and good appetite. she had some abdominal pain after injection of epi but resolved with pain meds. Review of Systems Review of Systems: All systems reviewed & are unremarkable except as noted in HPI and below Exam Const: General: comfortable and no acute distress HENMT: General nose exam: Normal nares present Eyes: General: appearance normal, both eyes and all related structures Neck: Neck: no JVD Resp: Auscultation: clear to auscultation bilaterally Cardio: Rate: regular rate Rhythm: regular rhythm GI: Inspection: non-distended GI Palp: Yes Soft to palpation, No Tenderness to palpation present (GI) and No Guarding due to palpation present (GI) Auscultation: normal bowel sounds Skin: General skin exam: normal color Neuro: General: gait normal Speech: normal speech Extrem: General: normal to inspection Psych: Mental Status: mental status grossly normal Objective Data Vital Signs Vital Signs: Vital Signs - 24 hr 05/05/21 15:49 05/05/21 20:00 05/06/21 05:50 Temperature 96.8 F L 97 F L 96.7 F L Pulse Rate 85 77 86 Respiratory Rate 20 18 18 Blood Pressure 150/59 H 148/57 H 139/55 L Pulse Oximetry 96 96 97 Intake/Output Intake/Output: Intake & Output 05/03/21 05/04/21 05/05/21 05/06/21 23:59 23:59 23:59 23:59 Intake Total 1350 2030 550 Output Total 1650 1000 Balance 1350 380 -450 Meds/Results Medications: Active Medications Generic Name Dose Route Start Last Admin Trade Name Freq PRN Reason Stop Dose Admin Acetaminophen 650 mg 05/04/21 22:55 05/06/21 08:31 Acetaminophen 325 Mg Tablet PO 650 mg Q12HR PRUDENCE Administration Amlodipine Besylate 5 mg 05/06/21 09:00 05/06/21 08:33 Amlodipine Besylate 5 Mg Tablet PO Not Given DAILY PRUDENCE Hydralazine HCl 10 mg 05/05/21 14:50 Hydralazine Hcl 20 Mg/Ml Vial IV PUSH Q8H PRN Blood Pressure - High Latanoprost 1 drop 05/04/21 22:55 05/05/21 20:26 Latanoprost 0.005% Op Soln 2.5 Ml Btl EACH EYE 1 drop HS PRUDENCE Administration Melatonin 5 mg 05/04/21 22:55 05/05/21 20:25 Melatonin 5 Mg Tablet PO 5 mg HS PRUDENCE Administration Morphine Sulfate 2 mg 05/06/21 11:53 Morphine Sulfate (*Crx) 2 Mg/Ml Inj IV PUSH Q4H PRN Abdominal Cramping Multivitamins/Minerals 1 tab 05/05/21 09:00 05/06/21 08:31 Multivitamins /C Lutein (Centrum Silver) Tablet *Bkc PO 1 tab QAM PRUDENCE Administration Multivitamins/Minerals 1 tablet 05/05/21 09:00 05/06/21 08:31 Opti-Gen Tab PO 06/04/21 09:01 1 tablet BID PRUDENCE Administration Naloxone HCl 0.1 mg 05/05/21 14:50 Naloxone Hcl 0.4 Mg/Ml Vial IV PUSH Q5MIN PRN narcotic overdose Ondansetron HCl 4 mg 05/04/21 15:20 05/05/21 14:07 Ondansetron Inj 4 Mg/2 Ml Vial IV PUSH 4 mg Q4H PRN Administration Nausea Pantopraz
[2021-05-06 16:33] LABS: Hemoglobin 9.8 g/dL (12.0-15.0)
[2021-05-06 20:00] VITALS: BP 134/61; BP 135/51; BP 161/69; PULSE 75; RESP 16; TEMP 36.4; O2SAT 95
[2021-05-06 20:51] LABS: Hematocrit 29.1 % (37.0-47.0); Hemoglobin 9.3 g/dL (12.0-15.0)
[2021-05-06] MEDS: MELATONIN 5 MG TABLET PO (21:37)
[2021-05-06] MEDS: LATANOPROST 0.005% OP SOLN 2.5 ML BTL 1 DROP EACH EYE (21:37)
[2021-05-06] MEDS: traZODone HCL 50 MG TABLET 150 MG PO (21:38)
[2021-05-07 05:41] VITALS: BP 128/52; PULSE 83; RESP 16; TEMP 36.4; O2SAT 95
[2021-05-07 06:46] LABS: Hematocrit 29.5 % (37.0-47.0); Hemoglobin 8.9 g/dL (12.0-15.0); Mean Corpuscular HGB Conc 30.2 g/dl (32-36); Mean Corpuscular Volume 92.8 fl (80-100); Mean Platelet Volume 10.8 fl (7.4-10.4); Platelet Count Result 132 k/mm3 (150-375); Red Blood Count 3.18 M/mm3 (4.2-5.4); Red Cell Distribution Width 20.4 % (11.5-14.5); White Blood Count 9.1 K/mm3 (4.5-10.0)
[2021-05-07 07:07] LABS: Anion Gap 5 mmol/L (8-16); Blood Urea Nitrogen 29 mg/dL (7-17); Calcium 8.7 mg/dL (8.4-10.2); Carbon Dioxide 23 mmol/L (22-30); Chloride 106 mmol/L (98-107); Estimated CRCL calculation 45 ml/min; Estimated Glomerular Filt Rate > 60; Glucose 84 mg/dL (65-110); Potassium 3.6 mmol/L (3.4-5.0); Sodium 134 mmol/L (137-145)
[2021-05-07] MEDS: PANTOPRAZOLE SODIUM IV 40 MG VIAL IV PUSH (07:55)
[2021-05-07] MEDS: MORPHINE SULFATE (*CRX) 2 MG/ML INJ IV PUSH (07:55)
[2021-05-07] MEDS: OPTI-GEN TAB 1 TABLET PO (08:02)
[2021-05-07] MEDS: ACETAMINOPHEN 325 MG TABLET 650 MG PO (08:02)
[2021-05-07] MEDS: MULTIVITAMINS /C LUTEIN (CENTRUM SILVER) TABLET *BKC 1 TAB PO (08:02)
--- NOTE | 2021-05-07 08:55 | WPDGIPROGNO ---
Progress Note: A&P Assessment and Plan (1) Acute blood loss anemia: Code(s): D62 - Acute posthemorrhagic anemia Status: Acute Assessment and Plan: egd with epi injection and 2 clips (site of ulcerated area in site of recent dilation) hb stable at 8.8-9 range after blood transfusion, hemodynamically stable and overall seems to be doing ok she can go home with ppi twice daily and hold her AC for 7 days since day of her egd cbc as outpatient and she can see us in office in 3-4 weeks (2) Duodenal ulcer: Onset Date: 01/2021 Code(s): K26.9 - Duodenal ulcer, unspecified as acute or chronic, without hemorrhage or perforation Status: Acute Assessment and Plan: on ppi twice daily (3) Melena: Code(s): K92.1 - Melena Status: Acute Assessment and Plan: expect to see dark stools for 2-3 more days, she has not had BM today (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 She is doing fairly well Review of Systems Review of Systems: All systems reviewed & are unremarkable except as noted in HPI and below Exam Const: General: comfortable and no acute distress HENMT: General nose exam: Normal nares present Eyes: General: appearance normal, both eyes and all related structures Neck: Neck: no JVD Resp: Auscultation: clear to auscultation bilaterally Cardio: Rate: regular rate Rhythm: regular rhythm GI: Inspection: non-distended GI Palp: Yes Soft to palpation, No Tenderness to palpation present (GI) and No Guarding due to palpation present (GI) Auscultation: normal bowel sounds Skin: General skin exam: normal color Neuro: General: gait normal Speech: normal speech Extrem: General: normal to inspection Psych: Mental Status: mental status grossly normal Objective Data Vital Signs Vital Signs: Vital Signs - 24 hr 05/06/21 14:00 05/06/21 14:20 05/06/21 14:22 Temperature 96.9 F L Pulse Rate 76 79 75 Respiratory Rate 18 Blood Pressure 120/52 L 125/46 L 124/50 L Pulse Oximetry 96 05/06/21 14:24 05/06/21 20:00 05/07/21 05:41 Temperature 97.5 F L 97.5 F L Pulse Rate 89 75 83 Respiratory Rate 16 16 Blood Pressure 117/61 161/69 H 128/52 L Pulse Oximetry 95 95 Intake/Output Intake/Output: Intake & Output 05/04/21 05/05/21 05/06/21 05/07/21 23:59 23:59 23:59 23:59 Intake Total 1350 2030 880 200 Output Total 1650 2425 400 Balance 1350 380 -1545 -200 Meds/Results Medications: Active Medications Generic Name Dose Route Start Last Admin Trade Name Freq PRN Reason Stop Dose Admin Acetaminophen 650 mg 05/04/21 22:55 05/07/21 08:02 Acetaminophen 325 Mg Tablet PO 650 mg Q12HR PRUDENCE Administration Amlodipine Besylate 5 mg 05/06/21 09:00 05/07/21 08:01 Amlodipine Besylate 5 Mg Tablet PO Not Given DAILY PRUDENCE Hydralazine HCl 10 mg 05/05/21 14:50 Hydralazine Hcl 20 Mg/Ml Vial IV PUSH Q8H PRN Blood Pressure - High Latanoprost 1 drop 05/04/21 22:55 05/06/21 21:37 Latanoprost 0.005% Op Soln 2.5 Ml Btl EACH EYE 1 drop HS PRUDENCE Administration Melatonin 5 mg 05/04/21 22:55 05/06/21 21:37 Melatonin 5 Mg Tablet PO 5 mg HS PRUDENCE Administration Morphine Sulfate 2 mg 05/06/21 11:53 05/07/21 07:55 Morphine Sulfate (*Crx) 2 Mg/Ml Inj IV PUSH 2 mg Q4H PRN Administration Abdominal Cramping Multivitamins/Minerals 1 tab 05/05/21 09:00 05/07/21 08:02 Multivitamins /C Lutein (Centrum Silver) Tablet *Bkc PO 1 tab QAM PRUDENCE Administration Multivitamins/Minerals 1 tablet 05/05/21 09:00 05/07/21 08:02 Opti-Gen Tab PO 06/04/21 09:01 1 tablet BID PRUDENCE Administration Naloxone HCl 0.1 mg 05/05/21 14:50 Naloxone Hcl 0.4 Mg/Ml Vial IV PUSH
[2021-05-07 12:30] LABS: Hematocrit 27.7 % (37.0-47.0); Hemoglobin 8.7 g/dL (12.0-15.0)
--- NOTE | 2021-05-07 13:47 | PM.DS ---
DS: Admitting Diagnosis Admitting Diagnosis gi bleed DS: Discharge Diagnosis Discharge Diagnosis (1) Acute blood loss anemia: Code(s): D62 - Acute posthemorrhagic anemia Status: Acute Assessment and Plan: Secondary to GI bleed -EGD showed ulcer with clots and a tear from dilation. Epi was injected and the bleeding appears to have stopped at this time - hemoglobin 6.8 on admission and was stable at 8.7 at discharge. - continue Protonix - continue to hold aspirn and plavix x7 days (on it for TIA) -spoke with Dr. Snell about a follow up H&H next week and he agrees to follow it (2) GI bleed: Code(s): K92.2 - Gastrointestinal hemorrhage, unspecified Status: Acute Assessment and Plan: as above (3) Essential (primary) hypertension: Code(s): I10 - Essential (primary) hypertension Status: Acute Assessment and Plan: last blood pressure 128/52 -continue amlodipine DS: Summary Hospital Course Hospital Course: DOS 05/07/21 Patient is a 80-year-old female on aspirin and Plavix for TIA who presented emergency room after an EGD for weakness and near syncopal event. Vitals in the ER were pulse 100, respiratory rate 16, blood pressure 98/52, pulse ox 100. Initial hemoglobin 6.5 and hematocrit 21.6. Patient was admitted to the hospitalist service and received 4 units of blood total. She underwent an EGD which is detailed above which showed a bleed and epinephrine was injected. After her EGD, her hemoglobin slowly declined but remained stable the last few days of discharge. Her anemia symptoms had completely resolved. She was placed on iron to help facilitate new blood production due to loss of blood to the GI tract. GI had recommended that she continue Protonix. The day of discharge the patient was feeling great and ready to go. She was educated about the worrisome signs and symptoms to come back to emergency room for and was discharged in stable condition. She is to get a repeat H&H next week. I called her primary care physician and spoke with Dr. Snell and he agreed to follow with her as an outpatient. Status at Discharge Functional status at discharge: independent ambulation Time Spent with Patient Time attestation: Total time spent providing and/or coordinating discharge services:38 min Time spent: Greater than 30 minutes Exam Narrative: General: Well developed well nourished patient in NARD HEENT: normocephalic Neck: supple Neuro: Alert and oriented CV:RRR Resp:CTA Abd: Soft, non distended. no pain to palpation to the abdomen. Positive bowel sounds Extremities: No swelling, erythema, or pain to palpation. DS: Data Data Completed and Pending Labs on day of discharge: Labs from last 24 hours 05/07/21 05/07/21 05/07/21 11:53 06:00 06:00 WBC 9.1 RBC 3.18 L Hgb 8.7 L 8.9 L Hct 27.7 L 29.5 L MCV 92.8 D MCH 28.0 MCHC 30.2 L RDW 20.4 H Plt Count 132 L MPV 10.8 H Sodium 134 L Potassium 3.6 Chloride 106 Carbon Dioxide 23 Anion Gap 5 L BUN 29 H Creatinine 0.70 Estim Creat Clear Calc 45 Estimated GFR > 60 Glucose 84 Calcium 8.7 05/06/21 05/06/21 20:43 16:21 WBC RBC Hgb 9.3 L 9.8 L Hct 29.1 L 31.0 L MCV MCH MCHC RDW Plt Count MPV Sodium Potassium Chloride Carbon Dioxide Anion Gap BUN Creatinine Estim Creat Clear Calc Estimated GFR Glucose Calcium Discharge Plan Discharge Attending physician on discharge: Dhaval Stokes Consulting providers: Arturo Mehta Discharging Clinician: Nessa Bird Patient Disposition: Home, Self-Care Activity: as tolerated Diet: regular Discharge Instructions: -please note your medications have changed. Resume your aspirin and Plavix on May 12, 2021. The iron may make your stools darker in color. This is normal. -follow-up with
== END 2021-05-07 15:00 | disposition home or self-care (01) | DRG 378 ==
LOC: ANHED 16:22 → ANH3MED 05-05 07:22
PROVIDERS: Internal Medicine Gastroenterology; Physician Assistant; Admitting Provider Internal Medicine; Emergency Provider Emergency Medicine; PCP Internal Medicine; Visit Provider Physician Assistant
PROC: 0DJ08ZZ Inspection of Upper Intestinal Tract, Via Natural or Artificial Opening Endoscopic (ICD-10-PCS; CPT 43235; principal; 2021-05-05 12:45)
DX: K26.4 Chronic or unspecified duodenal ulcer with hemorrhage (principal); D62 Acute posthemorrhagic anemia; K31.5 Obstruction of duodenum; K91.71 Accidental puncture and laceration of a digestive system organ or structure during a digestive system procedure; K44.9 Diaphragmatic hernia without obstruction or gangrene; I10 Essential (primary) hypertension; M21.372 Foot drop, left foot; H35.30 Unspecified macular degeneration; K57.90 Diverticulosis of intestine, part unspecified, without perforation or abscess without bleeding; M19.90 Unspecified osteoarthritis, unspecified site; M41.9 Scoliosis, unspecified; Z86.73 Personal history of transient ischemic attack (TIA), and cerebral infarction without residual deficits; Z66 Do not resuscitate; H40.9 Unspecified glaucoma
CPT/HCPCS: 36415; 36430; 80048; 80053; 81001; 83605; 83735; 84484; 85014; 85018; 85025; 85027; 85610; 85730; 86850; 86900; 86901; 86920; 87086; 87088; 88305; 93005; 97110; 97116; 97162; 97530; A9270; C1726; C9113; J0131; J0171; J2270; J2405; J2704; J7030; J7050; J7060; J7120; P9016

== ENCOUNTER 2021-05-15 08:21 | Outpatient (CLI) | payer MEDICARE, SELFPAY ==
--- NOTE | ~2021-05-15 | CT_ITS ---
EXAMINATION: CT abdomen pelvis wo con DATE: 05/15/2021 08:39 INDICATION: Lower abdominal pain TECHNIQUE: Computed tomography (CT) of the abdomen and pelvis was performed without intravenous contr ast. The dose-length product (DLP) was 216.32 mGy-cm. Automated exposure control and iterative recons truction technique were employed. COMPARISON: 02/09/2021 FINDINGS: Minimal dependent atelectasis is present in the lung bases. The heart size is normal. Withi n the limitations of noncontrast examination, the liver, spleen, pancreas, and adrenal glands are nor mal. Surgical clips are seen in the duodenum which reflect the sites of duodenal ulcers based on janice ent's endoscopy report from 05/05/2021. A cyst of the left kidney measures up to 4.8 cm. There is nons pecific low attenuation in the upper pole of the right kidney which is new since the comparison [facility]. No pathologically enlarged abdominal or pelvic lymph nodes are identified. Colonic diverticul osis is present without evidence of diverticulitis. There is no free intraperitoneal gas or evidence of bowel obstruction. There is severe lumbar spondylosis. IMPRESSION: 1. Changes of interval clip placement in the duodenum at the sites of duodenal ulcers. 2. New, nonspecific areas of low attenuation in the upper pole of the right kidney. Correlation with renal ultrasound is recommended. Reviewed, dictated and finalized at location A. IMPRESSION: 1. Changes of interval clip placement in the duodenum at the sites of duodenal ulcers. 2. New, nonspecific areas of low attenuation in the upper pole of the right kid amarilys. Correlation with renal ultrasound is recommended.
== END 2021-05-15 08:22 | disposition home or self-care (01) ==
LOC: ANHIMG 08:23
PROVIDERS: PCP Internal Medicine; Visit Provider Internal Medicine
DX: R10.84 Generalized abdominal pain (principal)
CPT/HCPCS: 74176

== ENCOUNTER 2021-05-25 13:34 | Outpatient (CLI) | payer MEDICARE, SELFPAY ==
--- NOTE | ~2021-05-25 | US_ITS ---
US renal BI 05/25/2021 14:08 Procedure: Realtime transabdominal ultrasound of the kidneys and bladder. Indication: Possible new right renal mass on recent noncontrast CT. Comparison: CT dated 05/15/2021 Findings: There are bilateral renal cysts. There is a subtle hypoechoic area anterior aspect of the r ight kidney, suspicious for perinephric hematoma. There is a 1.5 cm right renal cyst. There is a 3.9 x 4.1 x 3.6 cm left renal cyst. The right kidney measures 8.1 cm and left kidney measures 8.3 cm. Bl adder within normal limits. Impression: 1: Lentiform hypoechoic structure along the anterior superior margin of the right kidney, suspicious for perinephric hematoma. Recommend correlation with contrast-enhanced CT for further assessment. 2: Bilateral renal cysts. Reviewed, dictated and finalized at location A. Impression: 1: Lentiform hypoechoic structure along the anterior superior margin of the rig ht kidney, suspicious for perinephric hematoma. Recommend correlation with cont rast-enhanced CT for further assessment. 2: Bilateral renal cysts.
== END 2021-05-25 13:35 | disposition home or self-care (01) ==
LOC: ANHIMG 13:39
PROVIDERS: PCP Internal Medicine; Visit Provider Internal Medicine
DX: N28.81 Hypertrophy of kidney (principal); N28.1 Cyst of kidney, acquired
CPT/HCPCS: 76775

== ENCOUNTER 2021-06-05 06:47 | Outpatient (CLI) | payer MEDICARE, SELFPAY ==
--- NOTE | ~2021-06-05 | CT_ITS ---
EXAMINATION: CT abdomen wo/w con EXAM DATE: 06/05/2021 07:54 INDICATION: N28.9 - Disorder of kidney and ureter, unspecified . TECHNIQUE: Spiral CT of the abdomen was performed without and then with intravenous injection of 100 mL Omnipaque 350. Axial, coronal and sagittal images of the abdomen were reviewed. The dose-length product (DLP) for this examination was 307.30 mGy-cm. The exposure was tailored according to patien t size (auto mA exposure control), and iterative reconstruction (ASIR) was used as additional dose re duction technique. Comparison is made to prior examination from 05/15/2021. Correlation was made with kidney ultrasound 05/25/2021. FINDINGS: There is right-sided renal subcapsular fluid collection along the anterior cortex measuring about 4 cm in diameter by 1.5 cm in maximal thickness. This region was isodense on the prior noncont rast abdomen pelvis CT, making it indiscernible, but was probably present. On this examination it has decreased density as would be expected for subcapsular hematoma, and is better visualized. There is a right renal cyst measuring 1.8 cm, and the left renal cyst measuring 4.7 cm. The liver, spleen, adrenal glands and pancreas are unremarkable. Gallbladder is unremarkable. No bi liary obstruction. There is no retroperitoneal lymphadenopathy. There is mild descending colonic colonic diverticulosis. There is no adjacent inflammatory change to suggest diverticulitis. The stomach and small bowel are unremarkable. There is expected amount of c olonic stool. No free intraperitoneal gas. The heart is normal in size. There are no pericardial or pleural effusions. The lung bases are unremarkable. There are no osteoblastic or osteolytic les ions identified. Mild lower thoracic levoscoliosis. IMPRESSION: 1. Right renal small to moderate-sized subacute subcapsular hematoma, expected evolution. 2. Mild colonic diverticulosis. Reviewed, dictated and finalized at location B.
== END 2021-06-05 06:48 | disposition home or self-care (01) ==
PROVIDERS: PCP Internal Medicine; Visit Provider Internal Medicine
DX: S37.011A Minor contusion of right kidney, initial encounter (principal); K57.30 Diverticulosis of large intestine without perforation or abscess without bleeding
CPT/HCPCS: 74170; Q9967

== ENCOUNTER 2021-12-07 18:39 | Emergency (ER) | payer MEDICARE, SELFPAY ==
--- NOTE | ~2021-12-07 | CT_ITS ---
EXAMINATION: CT brain wo con EXAM DATE: 12/07/2021 19:35 INDICATION: Trauma, posterior head injury. On blood thinners. TECHNIQUE: Spiral CT of the head was performed without contrast. Axial, coronal and sagittal images were reviewed. The dose-length product (DLP) for this examination was 605.33 mGy-cm. The exposure w as tailored according to patient size, and iterative reconstruction (ASIR) was used as additional dos e reduction technique. Comparison is made to prior examination from 02/09/2021. FINDINGS: There is small acute right-sided subdural hematoma seen overlying the right frontal lobe an d also in the right middle cranial fossa along the tentorium. This is thickest along the tentorium at about 6 mm. I discussed this finding with Mina Dhaliwal MD at 12/07/2021 19:44 CDT. There is no overlying fracture. No acute intracranial hemorrhage. No evidence of acute infarction, br ain mass or obstructive hydrocephalus. There is moderate right sphenoid mucoperiosteal thickening. Mi ld microangiopathy and cerebral atrophy. IMPRESSION: Small right-sided acute subdural hematoma. Reviewed, dictated and finalized at location G.
[2021-12-07 18:43] VITALS: BP 165/82; PULSE 69; RESP 18; TEMP 36.8; O2SAT 100
--- NOTE | 2021-12-07 19:39 | ED.FALL ---
HPI - Fall General Chief Complaint: Fall Stated Complaint: fall Time Seen by Provider: 12/07/21 19:12 History of Present Illness HPI Narrative: Patient is an 81-year-old female who presents ER status post striking her head. Patient was walking down 2 steps and she fell backwards striking her head on a wood floor. She reports she struck it quite firmly but did not lose consciousness. She is developed a headache that goes from the upper part of her neck to the frontal part of her head. This is a new headache for her that she has not had previously. No new change in vision or hearing. No new numbness or weakness to an arm or leg. Patient typically walks with a cane due to chronic unsteadiness. Patient reports she takes Plavix and was concerned about a head bleed. Related Data Home Medications Medication Instructions Recorded Confirmed aspirin 81 mg tablet,delayed 81 mg PO DAILY 09/02/19 07/12/21 release melatonin 5 mg capsule 5 mg PO DAILY cap 12/29/20 07/12/21 Complete Multi 50+ 1 dose PO ONCE 02/10/21 07/12/21 PreserVision AREDS 1 dose PO BID 02/10/21 07/12/21 amlodipine 5 mg PO DAILY 02/10/21 07/12/21 Lumigan 1 drp EACH EYE HS 02/11/21 07/12/21 acetaminophen 650 mg 650 mg PO Q12H 03/09/21 07/12/21 tablet,extended release Allergies Allergy/AdvReac Type Severity Reaction Status Date / Time No Known Allergies Allergy Verified 07/12/21 12:37 Review of Systems Review of Systems: All systems reviewed & are unremarkable except as noted in HPI and below Constitutional: Constitutional: Denies chills, Denies fever(s) and Denies weakness ENT: Denies nasal congestion and Denies sore throat Cardiovascular: Cardiovascular: Denies chest pain, Denies rapid heart rate and Denies radiating jaw, neck or arm pain Respiratory: Respiratory: Denies cough and Denies dyspnea Gastrointestinal: Gastrointestinal: Denies abdominal pain, Denies nausea and Denies vomiting Neurologic: Denies dizziness, Denies syncope, Reports headache(s), Denies focal weakness and Denies numbness PMFSH Past Medical History Medical History Arthritis Diverticulitis Duodenal stricture Duodenal ulcer (01/2021) Essential (primary) hypertension Foot drop, left Glaucoma Kidney lesion Macular degeneration Scoliosis Transient ischemic attack Surgical History Surgical History History of abdominoplasty History of back surgery L4-L5 disc surgery History of tonsillectomy Family History Family History Father Malignant neoplasm of prostate Family history of heart disease in male family member before age 55 Mother ALS (amyotrophic lateral sclerosis) Sibling Parkinson disease Social History Social History Social History: Ms. Lion lives at home alone. Her fairly recently. She is mostly independent in her activities and her son lives nearby to help her as needed. She uses a walker for ambulation. She is a retired speech pathologist. She attends [employer] regularly. She designates her son, Gustavo, as her surrogate decision maker and would like to be listed as a DNR. Smoking packs per day: 1.5 Smoking cigarettes per day: 30.0 Years smoked: 1 Smoking pack-years: 1.50 Smoking status: Former smoker Second hand tobacco smoke exposure: No Smoking end date: 09/16/1959 Additional smoking assessment comments: when a teenager Alcohol intake: never Alcohol use details: 2 times a year Substance use: never Gender identity (if verbalized by the patient): Female Spiritual care concerns: No Exam Narrative: GENERAL: Well-appearing, well-nourished, and in no acute distress. HEAD: Normocephalic, small hematoma posterior scalp. EYES: EOMI. ENT: Mucous membranes asher
[2021-12-07 20:04] VITALS: PULSE 62; RESP 18
[2021-12-07 20:07] VITALS: BP 183/69; PULSE 62; RESP 16; O2SAT 98
== END 2021-12-07 20:44 | disposition short-term general hospital (02) ==
PROVIDERS: Emergency Provider Emergency Medicine; PCP Internal Medicine
DX: S06.5X9A Traumatic subdural hemorrhage with loss of consciousness of unspecified duration, initial encounter (principal); I10 Essential (primary) hypertension; H40.9 Unspecified glaucoma; H35.30 Unspecified macular degeneration; M19.90 Unspecified osteoarthritis, unspecified site; Z86.73 Personal history of transient ischemic attack (TIA), and cerebral infarction without residual deficits; Z66 Do not resuscitate; Z87.891 Personal history of nicotine dependence; Z79.82 Long term (current) use of aspirin; W10.9XXA Fall (on) (from) unspecified stairs and steps, initial encounter
CPT/HCPCS: 70450; 99285; L0140

== ENCOUNTER 2021-12-25 16:07 | Outpatient (CLI) | payer MEDICARE, SELFPAY ==
--- NOTE | ~2021-12-25 | CT_ITS ---
EXAMINATION: CT brain wo con DATE: 12/25/2021 16:58 INDICATION: Traumatic subdural hematoma with loss of consciousness. TECHNIQUE: Computed tomography (CT) of the head was performed without intravenous contrast. The mA wa s adjusted according to patient size. Iterative reconstruction technique was employed. The dose-lengt h product was 605.33 mGy-cm. COMPARISON: Head CT 12/07/2021 FINDINGS: There is a right-sided subdural hematoma that is hypodense to lombardi matter with maximum thic kness of 7 mm. No midline shift. There is no acute ischemic infarct or abnormal mass lesion. The vent ricles are normal in size. There are likely changes of right ocular lens replacement surgery. There i s mild mucosal thickening in the paranasal sinuses. There is sclerosis of the candelario of sphenoid sinus , consistent with chronic sinusitis. There is a trace right mastoid effusion. IMPRESSION: 1. Small subacute right-sided subdural hematoma. Reviewed, dictated and finalized at location A.
== END 2021-12-25 16:08 | disposition home or self-care (01) ==
LOC: ANHIMG 16:08
PROVIDERS: PCP Internal Medicine; Visit Provider Internal Medicine
DX: S06.5X9A Traumatic subdural hemorrhage with loss of consciousness of unspecified duration, initial encounter (principal)
CPT/HCPCS: 70450

== ENCOUNTER 2022-02-06 11:31 | Emergency (ER) | payer MEDICARE, SELFPAY ==
--- NOTE | ~2022-02-06 | XR_ITS ---
EXAMINATION: XR wrist RT min 3V DATE: 02/06/2022 12:27 INDICATION: Right wrist pain. TECHNIQUE: 4 views of right wrist were obtained. COMPARISON: None. FINDINGS: Bone alignment is normal. No fracture. There is mild osteoarthritis of second metacarpophal angeal joint and first interphalangeal joint. There are dystrophic calcifications about the wrist. IMPRESSION: 1. Mild polyarticular osteoarthritis. Reviewed, dictated and finalized at location A.
[2022-02-06 11:36] VITALS: BP 152/65; PULSE 75; RESP 16; TEMP 36.4; O2SAT 100
[2022-02-06 11:43] VITALS: BP 152/65; PULSE 75; RESP 16; TEMP 36.4; O2SAT 100
--- NOTE | 2022-02-06 12:05 | ED.EXTPRO ---
HPI - Extremity Problem General Chief complaint: Extremity Problem,Nontraumatic Stated complaint: right hand injury Source: patient Mode of arrival: ambulatory Limitations: no limitations History of Present Illness HPI Narrative: 81-year-old female presents to [facility] accompanied by her son for complaints of pain, redness and swelling to her right wrist since yesterday. Patient denies injury to the area. Patient denies history of gout. Patient denies fever, bodies, chills, chest pain or shortness of breath. Patient took her prescribed tramadol with minimal relief. Patient reports that she was stung in her right index finger by a wasp approximately 10 to 14 days ago and has been picking at that area. MD Complaint: extremity pain, extremity swelling and joint swelling Onset (ago): day(s) (1) Location: right Radiation: none Relieving factors: nothing Associated symptoms: denies other symptoms Related Data Home Medications Medication Instructions Recorded Confirmed aspirin 81 mg tablet,delayed 81 mg PO DAILY 09/02/19 01/05/22 release (Aspir-) Complete Multi 50+ 1 dose PO ONCE 02/10/21 01/05/22 PreserVision AREDS 1 dose PO BID 02/10/21 01/05/22 amlodipine 5 mg tablet 5 mg PO DAILY 02/10/21 12/21/21 bimatoprost 0.01 % eye drops 1 drp EACH EYE HS 02/11/21 01/05/22 (Jaxonigan) melatonin 5 mg capsule 5 mg PO DAILY 12/21/21 01/05/22 Allergies Allergy/AdvReac Type Severity Reaction Status Date / Time No Known Allergies Allergy Verified 01/18/22 11:24 Review of Systems Constitutional: Constitutional: Denies chills, Denies fatigue, Denies fever(s) and Denies weakness ENT: Denies vertigo and Denies dizziness Cardiovascular: Cardiovascular: Denies chest pain and Denies rapid heart rate Respiratory: Respiratory: Denies chest congestion, Denies cough, Denies dyspnea and Denies wheezing Gastrointestinal: Gastrointestinal: Denies abdominal pain, Denies bloating, Denies constipation and Denies heartburn Musculoskeletal: Comments: Pain, swelling and erythema to right wrist Endocrine: Endocrine: Denies fatigue [facility] Past Medical History Medical History Arthritis Diverticulitis Duodenal stricture Duodenal ulcer (01/2021) Essential (primary) hypertension Foot drop, left Glaucoma Kidney lesion Macular degeneration Scoliosis Transient ischemic attack Surgical History Surgical History History of abdominoplasty History of back surgery L4-L5 disc surgery History of tonsillectomy Family History Family History Father Malignant neoplasm of prostate Family history of heart disease in male family member before age 55 Mother ALS (amyotrophic lateral sclerosis) Sibling Parkinson disease Social History Social History Social History: Ms. Lion lives at home alone. Her fairly recently. She is mostly independent in her activities and her son lives nearby to help her as needed. She uses a walker for ambulation. 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 She designates her son, Gustavo, as her surrogate decision maker and would like to be listed as a DNR. Smoking packs per day: 1.5 Smoking cigarettes per day: 30.0 Years smoked: 1 Smoking pack-years: 1.50 Smoking status: Former smoker Second hand tobacco smoke exposure: No Smoking end date: 09/16/1959 Additional smoking assessment comments: when a teenager Alcohol intake: never Alcohol use details: 2 times a year Substance use: never Gender identity (if verbalized by the patient): Female Spiritual care concerns: No Comments At time of signature, I agree with nursing past medical, surgical, social and family history. There is no relevant family history pertinent to the presentin
== END 2022-02-06 12:42 | disposition home or self-care (01) ==
PROVIDERS: Emergency Provider Nurse Practitioner Family; PCP Internal Medicine
DX: L03.113 Cellulitis of right upper limb (principal); Z87.891 Personal history of nicotine dependence; M19.90 Unspecified osteoarthritis, unspecified site; I10 Essential (primary) hypertension; H40.9 Unspecified glaucoma; H35.30 Unspecified macular degeneration; Z86.73 Personal history of transient ischemic attack (TIA), and cerebral infarction without residual deficits
CPT/HCPCS: 73110; 99213; G0463

== ENCOUNTER 2023-04-16 09:56 | Outpatient (CLI) | payer MEDICARE, SELFPAY ==
--- NOTE | ~2023-04-16 | DEXA_ITS ---
Bone Density Report Name: ROBIN CURRY Age: 82 Sex: Female Ethnicity: White Date of : 1940 Indication: postmenopausal; screening for osteoporosis; height loss; Referring Provider: MAUREEN ARMAS Study: Bone densitometry was performed. Exam Date: April 16, 2023 Accession number: [id number] Bone Density: Region BMD T-score Z-score Classification AP Spine(L3, L4) 1.026 -0.7 2.3 Normal Femoral Neck (Left) 0.741 -1.0 1.5 Normal Total Hip (Left) 0.788 -1.3 1.0 Osteopenia Femoral Neck (Right) 0.817 -0.3 2.2 Normal Total Hip (Right) 0.823 -1.0 1.3 Normal Total Hip Mean 0.806 -1.2 1.2 Osteopenia World Health Organization criteria for BMD impression classify patients as: Normal (T-score at or above -1.0), Osteopenia (T-score between -1.0 and -2.5), or Osteoporosis (T-score at or below -2.5). 10-year Fracture Risk(1): Major Osteoporotic Fracture 12% Hip Fracture 2.6% Reported Risk Factors: [place] (), Neck BMD=0.741, BMI=24.6 (1) FRAX(R) Version 3.08. Fracture probability calculated for an untreated patient. Fracture probability may be lower if the patient has received treatment. Previous Exams: Region Exam Age BMD T-score BMD Change BMD Change Date g/cm2 vs Baseline vs Previous AP Spine (L3-L4) 04/16/2023 82 1.026 -0.7 0.005 (0.5%) 0.005 (0.5%) 07/27/2020 80 1.021 -0.7 Total Hip(Left) 04/16/2023 82 0.788 -1.3 -0.087 (-9.9%) -0.087 (-9.9%) 07/27/2020 80 0.875 -0.5 Total Hip(Right) 04/16/2023 82 0.823 -1.0 -0.119 (-12.7% -0.119 (-12.7% 07/27/2020 80 0.942 0.0 *Denotes significance at 95% confidence level, LSC for AP Spine = 0.022 g/cm2, LSC for Total Hip = 0.027 g/cm2 Clinical Information Provided by Patient: Patient maximum height was 64 Menopause Age: 49 No regular weight bearing exercise Drinks caffeinated beverages Onset of menses at age 11 Number of children 2 Impression: The patient has low bone mass, based on the Left Total Hip T-score. The patient has an estimated ten-year risk of hip fracture of 2.6% and an estimated ten-year risk of major fracture of 12%, based on the WHO FRAX algorithm. The BMD for the Total Hip(Left) decreased, changing by -9.9% since the last DXA exam. The BMD for the Total Hip(Right) decreased, changing by -12.7% since the last DXA exam. Discussion: BONE DENSITY IS LOW AT ONE OR MORE SKELETAL SITES. This patient's lowest T-score is low
== END 2023-04-16 09:57 | disposition home or self-care (01) ==
PROVIDERS: PCP Family Medicine; Visit Provider Family Medicine
DX: Z78.0 Asymptomatic menopausal state (principal); M85.852 Other specified disorders of bone density and structure, left thigh
CPT/HCPCS: 77080

== ENCOUNTER 2025-07-14 10:52 | Outpatient (CLI) | payer MEDICARE, SELFPAY ==
--- NOTE | ~2025-07-14 | DEXA_ITS ---
Bone Density Report Name: ROBIN CURRY Age: 85 Sex: Female Ethnicity: White Date of : 1940 Indication: osteopenia; height loss; Referring Provider: MAUREEN ARMAS Study: Bone densitometry was performed. Exam Date: July 14, 2025 Accession number: [id number] Bone Density: Region BMD T-score Z-score Classification AP Spine(L1-L4) 1.016 -0.3 2.6 Normal Femoral Neck (Left) 0.731 -1.1 1.5 Osteopenia Total Hip (Left) 0.789 -1.3 1.1 Osteopenia Femoral Neck (Right) 0.810 -0.4 2.2 Normal Total Hip (Right) 0.876 -0.5 1.8 Normal Total Hip Mean 0.832 -0.9 1.5 Normal World Health Organization criteria for BMD impression classify patients as: Normal (T-score at or above -1.0), Osteopenia (T-score between -1.0 and -2.5), or Osteoporosis (T-score at or below -2.5). 10-year Fracture Risk(1): Major Osteoporotic Fracture 12% Hip Fracture 2.9% Reported Risk Factors: [place] (), Neck BMD=0.731, BMI=24.9 (1) FRAX(R) Version 3.08. Fracture probability calculated for an untreated patient. Fracture probability may be lower if the patient has received treatment. Previous Exams: Region Exam Age BMD T-score BMD Change BMD Change Date g/cm2 vs Baseline vs Previous AP Spine (L1-L4) 07/14/2025 85 1.016 -0.3 0.000 (0.0%) 0.000 (0.0%) 07/27/2020 80 1.017 -0.3 Total Hip(Left) 07/14/2025 85 0.789 -1.3 -0.086 (-9.9%) 0.000 (0.0%) 04/16/2023 82 0.788 -1.3 -0.087 (-9.9%) -0.087 (-9.9%) 07/27/2020 80 0.875 -0.5 Total Hip(Right) 07/14/2025 85 0.876 -0.5 -0.067 (-7.1%) 0.053 (6.4%)* 04/16/2023 82 0.823 -1.0 -0.119 (-12.7% -0.119 (-12.7% 07/27/2020 80 0.942 0.0 *Denotes significance at 95% confidence level, LSC for AP Spine = 0.022 g/cm2, LSC for Total Hip = 0.027 g/cm2 Clinical Information Provided by Patient: Has used the following medications: Vitamin D, Calcium Patient maximum height was 64 Menopause Age: 49 No regular weight bearing exercise Drinks caffeinated beverages Onset of menses at age 11 Number of children 2 Impression: The patient has low bone mass, based on the Left Total Hip T-score. The patient has an estimated ten-year risk of hip fracture of 2.9% and an estimated ten-year risk of major fracture of 12%, based on the WHO FRAX algorithm. No significant bone loss was observed. Discussion: BONE DENSITY IS LOW AT ONE OR MORE SKELETAL SITES. This patient's lowest T-score is low at one or more skeletal sites. It meets the World Health Organization's (WHO) criteria for ?low bone mass? (T-score between -1.0 and -2.5). The patient's 10-year risk of fracture as calculated by FRAX is less than the threshold where pharmacological therapy is recommended by the National Osteoporosis Foundation (NOF). However, all treatment decisions require clinical judgment and consideration of individual patient factors, including patient preferences, comorbidities, previous drug use, risk factors not captured in the FRAX model (e.g., frailty, falls, vitamin D deficiency, increased bone turnover, interval significant decline in bone density) and possible under or overestimation of fracture risk by FRAX. The patient should follow a healthful lifestyle (good nutrition with adequate calcium and vitamin D, and appropriate weight-bearing exercise). Follow-Up: Consider repeating this study in 2 to 3 years to reassess this patient's status, or sooner if there is some new clinical indication. Reported by: ALHAJI on 07/14/2025 11:33:00 AM. Reviewed, dictated and finalized at location A.
--- OUTSIDE RECORDS SUMMARY | 2025-07-14 12:27 | XMS_ITS | Patient Health Record ---
Author Organization [facility] Address [address] [facility] [address] [place] [address] Care Team Providers Care Drywall Metal Stud Worker Name Role Phone Norbert Burton Unavailable [phone] Reason For Referral No Information Medications Medication SIG (Take, Route, Frequency, Duration) Notes Start Date End Date Status Latanoprost 0.005 % Solution Ophthalmic 01/12/2022 Active Clopidogrel Bisulfate 75 MG Tablet Oral 01/12/2022 Active traZODone HCl 50 MG Tablet Oral 01/12/2022 Active traMADol HCl 50 MG Tablet Oral 01/12/2022 Active Pantoprazole Sodium 40 MG Tablet Delayed Release Oral 01/12/2022 Activ e Nitrofurantoin Monohyd Macro 100 MG Capsule Oral 01/12/2022 Active Cephalexin 500 MG Capsule Oral 01/12/2022 Active Social History Social History Additional Details Category Social Info Options Details Migrated Social History Migrated Social History Alcohol Intake: Occasional 01/12/2022,Tobacco Years: Former smoker 12/22/2021,Smoking Status: 49 01/12/2022 Plan Of Treatment No Information Insurance Providers Payer Name Payer Address Payer Phone Subscriber Number Group Number Insured Name Patient Relationship to Insured Coverage Start Date Coverage End Date [facility] Medicare Replacement/ Advantage - Ppo [address] [address] [place] [address] [id number] ROBIN RODRIGUEZ Self - patient is the insured [place] [address] [place] [phone] [id number] ROBIN RODRIGUEZ Self - patient is the insured
--- OUTSIDE RECORDS SUMMARY | 2025-07-14 12:27 | XMS_ITS | Clinical Summary ---
Author Organization [facility] Address [address] [place] [id number] Care Team Providers Care Solar Sales Rep Name Role Phone Gen Munoz MD Primary Care Provider [phone] Allergies No known active allergies Medications latanoprost (XALATAN) 0.005 % ophthalmic solution Administer 1 drop into both eyes daily Active pantoprazole DR (PROTONIX) 40 mg EC tablet Take 1 tablet (40 mg total) by mouth daily Active traMADoL (ULTRAM) 50 mg tablet Take 1 tablet (50 mg total) by mouth every 6 (six) hours as needed for pain Active traZODone (DESYREL) 150 mg tablet Take 1 tablet (150 mg total) by mouth nightly as needed for sleep Active polyethylene glycol (MIRALAX) 17 gram packetIndicatio ns:constipation Take 1 packet (17 g total) by mouth daily for 14 days 14 packet 2 Active Additional Information Patient taking differently:17 g oralAs needed, Indications: constipation, Reported on 12/29/2021 senna-docusate (PERICOLACE) 8.6-50 mg Take 2 tablets by mouth 2 (two) times a day for 14 days 56 tablet 2 Active aspirin 81 mg enteric coated tablet Take 1 tablet (81 mg total) by mouth daily Active clopidogreL (PLAVIX) 75 mg tablet Take 1 tablet (75 mg total) by mouth daily 4 Active Active Problems Problem Noted Date Diagnosed Date Moderate malnutrition 12/12/2021 Diagnosis unknown 12/07/2021 Immunizations Immunization Administration Dates Next Due Influenza, Quadrivalent, Hig h Dose, Preservative Free, Intrr 06/07/2021,06/01/2020 Influenza, Quadrivalent, Spl it, Intramuscular 07/02/2019,09/30/2013 Influenza, Trivalent, High D ose, Split, Preservative Free, Intramuscular 06/15/2018,07/17/2017,06/04/2016 Influenza, Trivalent, IM (MDV) 06/04/2014 Influenza, Trivalent, Preser vative Free, Intramuscular 07/03/2015 Influenza, Unspecified 06/16/2021,07/27/2012 Pneumococcal Conjugate PCV 13 06/04/2016 ZOSTER Recombinant 11/13/2021,07/14/2021 Surgical History Surgery Date Site/Laterality Comments BACK SURGERY Medical History Medical History Date Comments Hypertension TIA (transient ischemic attack) Family History Medical History Relation Name Comments Parkinsonism Brother Cancer Father Parkinsonism Father Heart disease Maternal Grandmother ALS Mother Relation Name Status Comments Brother Father Maternal Grandmother Mother Social History Tobacco Use Types Packs/Day Years Used Date Smoking Tobacco: Former Smokeless Tobacco: Never Tobacco Cessation:Counseling Given: No Comments:pt quit 60 years ago AUDIT-C Answer Date Recorded Q1: How often do you have a drink containing alc ohol? Never 12/29/2021 Average Number of Drinks Not on file 022 Q3: How often do you have si x or more drinks on one occasion? 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 Pulse 85 11/08/2023 10:52 AM TRUCK ENGINE TECHNICIAN Temperature 37 C (98.6 F) 11/08/2023 10:52 AM TRUCK ENGINE TECHNICIAN Respiratory Rate 14 11/08/2023 10:5 2 AM TRUCK ENGINE TECHNICIAN Oxygen Saturation 96% 11/08/2023 10: 52 AM TRUCK ENGINE TECHNICIAN Inhaled Oxygen Concentration - - Weight 59.9 kg (132 lb) 11/08/2023 10:5 2 AM TRUCK ENGINE TECHNICIAN Height 160 cm (5' 3) 12/29/2021 10:34 AM CDT Body Mass Index 23.38 12/29/2021 10:34 AM CDT Plan of Treatment Health Maintenance Due Date Last Done Comments Depression Screening 1940 Osteoporosis Screening-Bone Density Scan 1940 DTaP/Tdap/Td Vaccine (1 - Tdap) 1951 Hepatitis B Screening 1958 Well Visit 65+ 2004 Pneumococcal vaccine 65+ (2 of 2 - PCV20 or PCV21) 06/04/2017 06/04/2016 Fall Risk Assessment 12/17/2022 12/17/2021 Covid-19 Vaccine (4 - 2024-2 6 season) 2025 07/14/2021, 11/28/2020, 11/06/2020 Influenza Vaccine (#1) 2025 , 06/07/2021, 06/01/2020, Additional history exists Zoster Vaccine Completed 11/13/2021, 07/14/2021 Insurance [employer] MEDICARE ADVANTAGE [employer] MEDICARE ADVANTAGE Advance Directives For more information, please contact: [phone] * Full Code (Latest Code Status on File) Date Activated Date Inactivated Comments 12/08/2021 4:30 AM 12/17/2021 3:49 PM Care Teams Solar Sales Rep Relationship Specialty Start Date End Date Gen Munoz MD PCP - General Family Practice 11/08/23
== END 2025-07-14 10:53 | disposition home or self-care (01) ==
LOC: ANHFOHIMG 10:54
PROVIDERS: PCP Family Medicine; Visit Provider Family Medicine
DX: M85.89 Other specified disorders of bone density and structure, multiple sites (principal); Z78.0 Asymptomatic menopausal state
CPT/HCPCS: 77080